=== PATIENT | female | born 1945 | race Caucasian/White ===

== ENCOUNTER 2018-09-02 07:21 | Day surgery (SDC) | payer MEDICARE, BC ==
[2018-08-29 14:32] VITALS: BMI 44.9
[~2018-09-02 07:21] MED LIST: LACTATED RINGERS 1,000 ML IV SCH; LIDOCAINE 1% 20 ML VIAL (10MG/ML) FOR IV START INTRADERMA PRN
[2018-09-02 07:51] LABS: Glucose,Whole Blood 130 mg/dL (75-99)
[2018-09-02 07:56] VITALS: TEMP 98
[2018-09-02] MEDS ORDERED: LIDOCAINE 1% 20 ML VIAL (10MG/ML) FOR IV START INTRADERMA ONE (07:57)
[2018-09-02] MEDS ORDERED: PROPOFOL 10 MG/ML 20 ML VIAL IV ONE (08:41)
[2018-09-02] MEDS ORDERED: LIDOCAINE 1% INJ 10MG/ML (20 ML MDV) ONE (08:41)
--- NOTE | 2018-09-02 08:47 | P.GSHP ---
History of Present Illness H&P Date: 09/02/18 Chief Complaint: GI bleed This a 73-year-old female who's had complaints of anemia. Patient's had some minor GI bleed in the past. She does today for EGD colonoscopy. Past Medical History Past Medical History: CVA/TIA, Diabetes Mellitus, Hyperlipidemia, Hypertension, Osteoarthritis (OA), Skin Disorder Additional Past Medical History / Comment(s): STATES IS ANEMIC, HX BRAIN ANEURYSM, PSORIASIS, GOUT History of Any Multi-Drug Resistant Organisms: MRSA Date of last positivie culture/infection: SUMMER 2013 MDRO Source:: CHEST,BREAST,STOMACH Past Surgical History: Appendectomy, Hysterectomy, Orthopedic Surgery Additional Past Surgical History / Comment(s): BRAIN ANEURYSM CLIPPED,RT SHOULDER SURGERY, GANGLION CYST REMOVED RT HAND,CYST AND NODULE REMOVED RT BREAST, Past Anesthesia/Blood Transfusion Reactions: Previous Problems w/ Anesthesia, Motion Sickness Additional Past Anesthesia/Blood Transfusion Reaction / Comment(s): STATES FELT "SEVERE PAIN" WITH PREVIOUS COLONOSCOPY, WITH PREV. GENERAL ANESTHESIA STATES SHE HAD HALLUCINATIONS Smoking Status: Former smoker - Past Family History Mother Additional Family Medical History / Comment(s): PRECANCEROUS BREAST CELLS- MASTECTOMY Father Family Medical History: Myocardial Infarction ([place]) Medications and Allergies Home Medications Medication Instructions Recorded Confirmed Type Allopurinol 200 mg PO DAILY 01/13/15 09/02/18 History Insulin Glargine [Lantus] 18 units SQ HS 01/13/15 09/02/18 History Levothyroxine Sodium [Synthroid] 25 mcg PO DAILY@1800 01/13/15 09/02/18 History Lisinopril 10 mg PO DAILY@1800 01/13/15 09/02/18 History Atorvastatin [Lipitor] 40 mg PO DAILY 01/25/15 09/02/18 History Pioglitazone [Actos] 15 mg PO QAM 08/29/18 09/02/18 History metFORMIN HCL [Glucophage] 1,000 mg PO AC-SUPPER 08/29/18 09/02/18 History metFORMIN HCL [Glucophage] 500 mg PO QAM 08/29/18 09/02/18 History Allergies Allergy/AdvReac Type Severity Reaction Status Date / Time No Known Allergies Allergy Verified 09/02/18 07:32 Surgical - Exam Vital Signs Temp Pulse Resp BP Pulse Ox 98 F 101 H 16 163/99 99 09/02/18 07:52 09/02/18 07:52 09/02/18 07:52 09/02/18 07:52 09/02/18 07:52 - General well developed, well nourished, no distress - Eyes PERRL - ENT normal pinna - Neck no masses - Respiratory normal expansion - Cardiovascular Rhythm: regular - Abdomen Abdomen: soft, non tender Results - Labs Abnormal Lab Results - Last 24 Hours (Table) 09/02/18 Range/Units 07:50 POC Glucose (mg/dL) 130 H (75-99) mg/dL Assessment and Plan Assessment: GI bleed Anemia We'll perform EGD and colonoscopy.
--- NOTE | 2018-09-02 09:11 | P.OP ---
Date of Procedure: 09/02/18 Preoperative Diagnosis: GI bleed Postoperative Diagnosis: Antral gastritis Right colon polyp Diverticulosis Procedure(s) Performed: EGD Colonoscopy Anesthesia: MAC Surgeon: Eric Arnold Pathology: other (Antrum, right colon polyp) Condition: stable Disposition: PACU Description of Procedure: The patient's placed on the endoscopy table in the lateral position. She received IV sedation. The gastroscope placed oropharynx and passed in the esophagus and into the stomach. Scope was then placed through the pylorus. The first and second portion of the duodenum appeared normal. The scope was then brought back the antrum and this was mildly inflamed. A biopsies performed. Scope was retroflexed and remainder of the stomach appeared normal. There was a small hiatal hernia. The GE junction was at 38 cm. The distal esophagus appeared normal. The proximal esophagus. Normal. Scope was withdrawn for patient. There was no evidence of any active upper GI bleed. Next digital rectal exam was performed which revealed a few minimal external hemorrhoids. The flexible colonoscope was then placed patient anus passed throughout the entire colon. The ileocecal valve was visualized. The cecum was visualized. Just above the cecum there was a pedunculated polyp was removed with snare. There is some mild diverticular changes of the right colon. Scope was then brought back the remainder the ascending colon and transverse colon was examined. There were scattered diverticuli seen. In the descending and sigmoid colon there were a few scattered diverticula. There is no evidence of any polyps or tumors. Scope was back the rectum and this appeared normal. Scope was withdrawn for patient. There is known to any active GI bleed. His presumed the patient had some minor bleeding due to diverticular changes in the colon polyp.
[2018-09-02 09:39] VITALS: RESP 18
[2018-09-02 09:53] VITALS: BP 140/50; PULSE 90
== END 2018-09-02 09:53 | disposition home or self-care (01) ==
LOC: ORWHC2ENDO 07:21
PROVIDERS: ATTEND Surgery
DX: K29.50 Unspecified chronic gastritis without bleeding (principal); D12.2 Benign neoplasm of ascending colon; K57.30 Diverticulosis of large intestine without perforation or abscess without bleeding; B96.81 Helicobacter pylori [H. pylori] as the cause of diseases classified elsewhere; D64.9 Anemia, unspecified; K44.9 Diaphragmatic hernia without obstruction or gangrene; E11.9 Type 2 diabetes mellitus without complications; E78.5 Hyperlipidemia, unspecified; E07.9 Disorder of thyroid, unspecified; I10 Essential (primary) hypertension; K64.4 Residual hemorrhoidal skin tags; L40.9 Psoriasis, unspecified; M10.9 Gout, unspecified; M19.90 Unspecified osteoarthritis, unspecified site; Z79.4 Long term (current) use of insulin; Z86.73 Personal history of transient ischemic attack (TIA), and cerebral infarction without residual deficits; Z87.891 Personal history of nicotine dependence; Z79.890 Hormone replacement therapy; Z79.82 Long term (current) use of aspirin; Z86.14 Personal history of Methicillin resistant Staphylococcus aureus infection
CPT/HCPCS: 88305; 88342; 45385; 43239; J2001; J2704

== ENCOUNTER 2018-09-20 11:37 | Inpatient (IN) | payer MEDICARE, BC ==
[2018-09-20 13:24] LABS: Anisocytosis Slight; Basophils % (A) 0 %; Eosinophils # (A) 0.1 k/uL (0-0.7); Eosinophils % (A) 1 %; HCT 21.5 % (34.0-46.0); Hypochromasia Marked; Lymphocytes # (A) 1.7 k/uL (1.0-4.8); Lymphocytes % (A) 22 %; MCH 19.5 pg (25.0-35.0); MCHC 28.5 g/dL (31.0-37.0); MCV 68.2 fL (80.0-100.0); Mean Platelet Volume 6.7; Microcytosis Marked; Monocytes # (A) 0.3 k/uL (0-1.0); Monocytes % (A) 4 %; Neutrophils # (A) 5.5 k/uL (1.3-7.7); Neutrophils % (A) 71 %; Platelet Count 345 k/uL (150-450); Poikilocytosis Moderate; RBC 3.16 m/uL (3.80-5.40); WBC 7.7 k/uL (3.8-10.6)
[2018-09-20 13:33] LABS: Albumin 3.8 g/dL (3.5-5.0); Calcium 9.2 mg/dL (8.4-10.2); Magnesium 1.2 mg/dL (1.6-2.3); Potassium 4.9 mmol/L (3.5-5.1); Total Bilirubin 0.4 mg/dL (0.2-1.3); Total Protein 6.6 g/dL (6.3-8.2)
[2018-09-20 13:34] LABS: HGB 6.1 gm/dL (11.4-16.0)
[2018-09-20 13:43] LABS: Creatine Kinase 61 U/L (30-135)
[2018-09-20 13:45] LABS: INR 0.9 (<1.2); Partial Thromboplastin Time 22.4 sec (22.0-30.0); Prothrombin Time 9.8 sec (9.0-12.0)
[2018-09-20 13:56] LABS: Creatine Kinase MB 0.5 ng/mL (0.0-2.4); Troponin I <0.012 ng/mL (0.000-0.034)
--- NOTE | 2018-09-20 14:11 | ED ---
SOB HPI - General Chief Complaint: Shortness of Breath Stated Complaint: SORAIDA Time Seen by Provider: 09/20/18 11:57 Source: patient, family, RN notes reviewed Mode of arrival: wheelchair Limitations: no limitations - History of Present Illness Initial Comments: This is a 73-year-old female who presents with complaints of exertional dyspnea is been going on for some time now she has been evaluated for bleeding and pelvis on have some type of upper GI bleed she was seen by Dr. De Diosania she barely had endoscopy. She was seen by her doctor yesterday found have a hemoglobin 6.3 was sent in for evaluation and blood transfusion. She is still extremely exertional dyspnea. No chest pain no cough or phlegm production. She is a former smoker but quit 1984. No black stools reported no nausea vomiting MD Complaint: shortness of breath - Related Data Home Medications Medication Instructions Recorded Confirmed Allopurinol 200 mg PO DAILY 01/13/15 09/02/18 Insulin Glargine [Lantus] 18 units SQ HS 01/13/15 09/02/18 Levothyroxine Sodium [Synthroid] 25 mcg PO DAILY@1800 01/13/15 09/02/18 Lisinopril 10 mg PO DAILY@1800 01/13/15 09/02/18 Atorvastatin [Lipitor] 40 mg PO DAILY 01/25/15 09/02/18 Pioglitazone [Actos] 15 mg PO QAM 08/29/18 09/02/18 metFORMIN HCL [Glucophage] 1,000 mg PO AC-SUPPER 08/29/18 09/02/18 metFORMIN HCL [Glucophage] 500 mg PO QAM 08/29/18 09/02/18 Allergies Allergy/AdvReac Type Severity Reaction Status Date / Time No Known Allergies Allergy Verified 09/02/18 07:32 Review of Systems ROS Statement: Those systems with pertinent positive or pertinent negative responses have been documented in the HPI. ROS Other: All systems not noted in ROS Statement are negative. Past Medical History Past Medical History: CVA/TIA, Diabetes Mellitus, Hyperlipidemia, Hypertension, Osteoarthritis (OA), Skin Disorder Additional Past Medical History / Comment(s): STATES IS ANEMIC, HX BRAIN ANEURYSM, PSORIASIS, GOUT History of Any Multi-Drug Resistant Organisms: None Reported, MRSA Date of last positivie culture/infection: SUMMER 2013 MDRO Source:: CHEST,BREAST,STOMACH Past Surgical History: Appendectomy, Hysterectomy, Orthopedic Surgery Additional Past Surgical History / Comment(s): BRAIN ANEURYSM CLIPPED,RT SHOULDER SURGERY, GANGLION CYST REMOVED RT HAND,CYST AND NODULE REMOVED RT BREAST, Past Anesthesia/Blood Transfusion Reactions: Previous Problems w/ Anesthesia, Motion Sickness Additional Past Anesthesia/Blood Transfusion Reaction / Comment(s): STATES FELT "SEVERE PAIN" WITH PREVIOUS COLONOSCOPY, WITH PREV. GENERAL ANESTHESIA STATES SHE HAD HALLUCINATIONS Past Psychological History: No Psychological Hx Reported Smoking Status: Former smoker Past Alcohol Use History: Rare Past Drug Use History: None Reported - Past Family History Mother Additional Family Medical History / Comment(s): PRECANCEROUS BREAST CELLS- MASTECTOMY Father Family Medical History: Myocardial Infarction ([place]) General Exam - General Exam Comments Initial Comments: Well-developed obese female who is awake alert oriented 3 Limitations: no limitations General appearance: alert, in no apparent distress Head exam: Present: atraumatic, normocephalic, normal inspection Eye exam: Present: normal appearance, PERRL, EOMI. Absent: scleral icterus, conjunctival injection, periorbital swelling ENT exam: Present: normal exam, mucous membranes moist Neck exam: Present: normal inspection. Absent: tenderness, meningismus, lymphadenopathy Respiratory exam: Present: normal lung sounds bilaterally. Absent: respiratory distress, wheezes, rales, rhonchi, stridor Cardiovascular Exam: Present: regular rate, normal rhythm, normal heart sounds. Absent: systolic murmur, diastolic murmur, rubs, gallop, clicks GI/Abdominal exam: Present: soft, normal bowel sounds. Absent: distended, tenderness, guarding, rebound, rigid, bruit, pulsatile mass Rectal exam: Present: normal inspection, other (Brown yellow stool no gross blood. The exam was done with a female nurse present) Extremities exam: Present: normal inspection, full ROM, normal capillary refill. Absent: tenderness, pedal edema, joint swelling, calf tenderness Back exam: Present: normal inspection Neurological exam: Present: alert, oriented X3, CN II-XII intact Psychiatric exam: Present: normal affect, normal mood Skin exam: Present: warm, dry, intact, normal color. Absent: rash Course Vital Signs 09/20/18 11:43 Temperature 98.1 F Pulse Rate 105 H Respiratory 18 Rate Blood Pressure 128/76 O2 Sat by Pulse 99 Oximetry - Reevaluation(s) Reevaluation #1: 02/16/19 14:50 Of note I did reevaluate the patient she had no further symptoms while at rest. Medical Decision Making - Medical Decision Making Patient remains asymptomatic at rest she does walk she is short of breath. I did discuss the findings with her and her . Patient will be admitted for transfusion and evaluation by Dr. Arnold. The Hemoccult test is pending at this time but there is no evidence of any gross bleeding. I did discuss case with Dr. Cartwright - Lab Data Result diagrams: 09/20/18 13:08 09/20/18 13:08 Lab Results 09/20/18 09/20/18 09/20/18 Range/Units 13:08 13:08 13:08 WBC 7.7 (3.8-10.6) k/uL RBC 3.16 L (3.80-5.40) m/uL Hgb 6.1 L* (11.4-16.0) gm/dL Hct 21.5 L (34.0-46.0) % MCV 68.2 L (80.0-100.0) fL MCH 19.5 L (25.0-35.0) pg MCHC 28.5 L (31.0-37.0) g/dL RDW 17.0 H (11.5-15.5) % Plt Count 345 (150-450) k/uL Neutrophils % 71 % Lymphocytes % 22 % Monocytes % 4 % Eosinophils % 1 % Basophils % 0 % Neutrophils # 5.5 (1.3-7.7) k/uL Lymphocytes # 1.7 (1.0-4.8) k/uL Monocytes # 0.3 (0-1.0) k/uL Eosinophils # 0.1 (0-0.7) k/uL Basophils # 0.0 (0-0.2) k/uL Hypochromasia Marked Poikilocytosis Moderate Anisocytosis Slight Microcytosis Marked PT (9.0-12.0) sec INR (<1.2) APTT (22.0-30.0) sec Sodium (137-145) mmol/L Potassium (3.5-5.1) mmol/L Chloride (98-107) mmol/L Carbon Dioxide (22-30) mmol/L Anion Gap mmol/L BUN (7-17) mg/dL Creatinine (0.52-1.04) mg/dL Est GFR (CKD-EPI)AfAm (>60 ml/min/1.73 sqM) Est GFR (CKD-EPI)NonAf (>60 ml/min/1.73 sqM) Glucose (74-99) mg/dL Calcium (8.4-10.2) mg/dL Magnesium (1.6-2.3) mg/dL Total Bilirubin (0.2-1.3) mg/dL AST (14-36) U/L ALT (9-52) U/L Alkaline Phosphatase (38-126) U/L Total Creatine Kinase 61 (30-135) U/L CK-MB (CK-2) 0.5 (0.0-2.4) ng/mL CK-MB (CK-2) Rel Index 0.8 Troponin I <0.012 (0.000-0.034) ng/mL NT-Pro-B Natriuret Pep pg/mL Total Protein (6.3-8.2) g/dL Albumin (3.5-5.0) g/dL Blood Type B Positive Blood Type Recheck CABO Indicated Antibody Screen NEGATIVE Spec Expiration Date 09/23/2018 - 230709/20/18 09/20/18 09/20/18 Range/Units 13:08 13:08 13:08 WBC (3.8-10.6) k/uL RBC (3.80-5.40) m/uL Hgb (11.4-16.0) gm/dL Hct (34.0-46.0) % MCV (80.0-100.0) fL MCH (25.0-35.0) pg MCHC (31.0-37.0) g/dL RDW (11.5-15.5) % Plt Count (150-450) k/uL Neutrophils % % Lymphocytes % % Monocytes % % Eosinophils % % Basophils % % Neutrophils # (1.3-7.7) k/uL Lymphocytes # (1.0-4.8) k/uL Monocytes # (0-1.0) k/uL Eosinophils # (0-0.7) k/uL Basophils # (0-0.2) k/uL Hypochromasia Poikilocytosis Anisocytosis Microcytosis PT 9.8 (9.0-12.0) sec INR 0.9 (<1.2) APTT 22.4 (22.0-30.0) sec Sodium 142 (137-145) mmol/L Potassium 4.9 (3.5-5.1) mmol/L Chloride 112 H (98-107) mmol/L Carbon Dioxide 17 L (22-30) mmol/L Anion Gap 13 mmol/L BUN 30 H (7-17) mg/dL Creatinine 1.56 H (0.52-1.04) mg/dL Est GFR (CKD-EPI)AfAm 37 (>60 ml/min/1.73 sqM) Est GFR (CKD-EPI)NonAf 32 (>60 ml/min/1.73 sqM) Glucose 98 (74-99) mg/dL Calcium 9.2 (8.4-10.2) mg/dL Magnesium 1.2 L (1.6-2.3) mg/dL Total Bilirubin 0.4 (0.2-1.3) mg/dL AST 29 (14-36) U/L ALT 28 (9-52) U/L Alkaline Phosphatase 80 (38-126) U/L Total Creatine Kinase (30-135) U/L CK-MB (CK-2) (0.0-2.4) ng/mL CK-MB (CK-2) Rel Index Troponin I (0.000-0.034) ng/mL NT-Pro-B Natriuret Pep 540 pg/mL Total Protein 6.6 (6.3-8.2) g/dL Albumin 3.8 (3.5-5.0) g/dL Blood Type Blood Type Recheck Antibody Screen Spec Expiration Date - EKG Data -: EKG Interpreted by Oh EKG shows normal: sinus rhythm (Sinus tachycardia rate 101 NH interval 126 QRS 76 QT since QTC 366/474 no definite acute findings) Critical Care Time Critical Care Time: Yes Critical Care Time: 31 minutes of critical care time which includes initial presentation with history physical labs x-rays several reevaluation patient as well as review of old charting was available. Discussion with the family regarding findings discussed with the admitting physician. Admission orders documentation of the above Disposition Clinical Impression: Symptomatic anemia, Renal insufficiency syndrome, Hypomagnesemia Disposition: ADMITTED IP TO THIS HOSP Condition: Stable Referrals: Shannon Middleton DO [Primary Care Provider] - 1-2 days
[2018-09-20] MEDS ORDERED: MAGNESIUM SULFATE-D5W PMX 1 GM in DEXTROSE/WATER 1 100ML.BAG IVPB ONE (14:17)
[2018-09-20] MEDS ORDERED: NALOXONE 0.4 MG/ML 1 ML VIAL IV PRN (14:51)
[2018-09-20] MEDS ORDERED: ONDANSETRON 4 MG/2 ML VIAL IVP PRN (14:51)
--- NOTE | 2018-09-20 15:27 | XR ---
EXAMINATION TYPE: XR chest 2V DATE OF EXAM: 09/20/2018 COMPARISON: NONE HISTORY: Difficulty breathing TECHNIQUE: Frontal and lateral views of the chest are obtained. FINDINGS: There is no heart failure nor confluent pneumonic infiltrate. Costophrenic angles are charli r. There is left shoulder prosthesis. Heart size is normal. There are chest leads. IMPRESSION: Normal chest.
[2018-09-20] MEDS ORDERED: FUROSEMIDE 10 MG/ML 2 ML VIAL IV ONE (15:56)
[2018-09-20] MEDS: SODIUM CHLORIDE 0.9% 1,000 ML IV SCH (16:31)
[2018-09-20 16:55] LABS: Glucose,Whole Blood 147 mg/dL (75-99)
[2018-09-20] MEDS: LISINOPRIL 10 MG TAB PO SCH (17:51)
[2018-09-20] MEDS: LEVOTHYROXINE 25 MCG TAB PO SCH (17:51)
[2018-09-20] MEDS: metFORMIN 500 MG TAB PO SCH (17:51)
[2018-09-20 20:31] LABS: Glucose,Whole Blood 88 mg/dL (75-99)
[2018-09-20] MEDS: ASPIRIN-ACET-CAFF 250-250-65MG 1 EACH TAB PO SCH (20:52)
[2018-09-20] MEDS: PANTOPRAZOLE 40 MG/10 ML VIAL IV SCH (20:53)
[2018-09-20] MEDS: INSULIN DETEMIR (LEVEMIR) 100 UNIT/ML SYR SQ SCH (21:08)
[2018-09-20 23:55] LABS: Hemoglobin A1C 6.8 % (4.0-6.0)
[2018-09-21 02:34] LABS: Glucose,Whole Blood 92 mg/dL (75-99)
[2018-09-21 07:10] LABS: Glucose,Whole Blood 105 mg/dL (75-99)
[2018-09-21 09:23] LABS: Anisocytosis Slight; Basophils % (A) 1 %; Eosinophils # (A) 0.2 k/uL (0-0.7); Eosinophils % (A) 2 %; HCT 26.8 % (34.0-46.0); Hypochromasia Marked; Lymphocytes # (A) 1.4 k/uL (1.0-4.8); Lymphocytes % (A) 20 %; MCH 21.8 pg (25.0-35.0); MCHC 30.5 g/dL (31.0-37.0); MCV 71.5 fL (80.0-100.0); Mean Platelet Volume 6.2; Microcytosis Marked; Monocytes # (A) 0.3 k/uL (0-1.0); Monocytes % (A) 4 %; Neutrophils # (A) 5.1 k/uL (1.3-7.7); Neutrophils % (A) 71 %; Platelet Count 313 k/uL (150-450); Poikilocytosis Marked; RBC 3.75 m/uL (3.80-5.40); RDW 18.4 % (11.5-15.5); WBC 7.1 k/uL (3.8-10.6)
[2018-09-21 09:35] LABS: HGB 8.2 gm/dL (11.4-16.0)
[2018-09-21 09:46] LABS: Albumin 3.4 g/dL (3.5-5.0); Calcium 8.9 mg/dL (8.4-10.2); Potassium 4.1 mmol/L (3.5-5.1); Total Bilirubin 0.5 mg/dL (0.2-1.3); Total Protein 6.1 g/dL (6.3-8.2)
[2018-09-21] MEDS: metFORMIN 500 MG TAB PO SCH ×2 (09:50→17:41)
[2018-09-21] MEDS: PIOGLITAZONE 15 MG TAB PO SCH (09:50)
[2018-09-21] MEDS: PANTOPRAZOLE 40 MG/10 ML VIAL IV SCH ×2 (09:50→20:25)
[2018-09-21] MEDS: ALLOPURINOL 100 MG TAB PO SCH (09:50)
[2018-09-21] MEDS: SODIUM CHLORIDE 0.9% 1,000 ML IV SCH (09:50)
[2018-09-21] MEDS: ATORVASTATIN 40 MG TAB PO SCH (09:50)
[2018-09-21] MEDS ORDERED: Magnesium Replacement Protocol 1 EACH MISC MISCELLANE PRN (10:43)
--- NOTE | 2018-09-21 11:13 | P.HPIM ---
History of Present Illness H&P Date: 09/21/18 Chief Complaint: Shortness of breath Yan Dumont is a 73-year-old female patient of Dr. Shannon Middleton, who presented to [facility] emergency room with a chief complaint of worsening shortness of breath. Hemoglobin on presentation was 6.1. Patient has been following with her primary care physician and with Dr. Arnold for evaluation of anemia she had an EGD and colonoscopy on 09/02/2018 that revealed evidence of acute gastritis, right colon polyp, and diverticulosis. Patient was also diagnosed with positive H. pylori and was started on oral amoxicillin and oral Biaxin however she continued to have worsening anemia and on the day of admission she started having worsening shortness of breath and she decided to come to emergency room. On review of systems: there is no fever or chills no headache or dizziness no chest pain no palpitation no cough no nausea or vomiting no abdominal pain no diarrhea no burning with urination no frequency no urgency and no hematuria patient stated that her stool has been kash color Past Medical History Past Medical History: CVA/TIA, Diabetes Mellitus, Hyperlipidemia, Hypertension, Osteoarthritis (OA), Skin Disorder Additional Past Medical History / Comment(s): STATES IS ANEMIC, HX BRAIN ANEURYSM, PSORIASIS, GOUT History of Any Multi-Drug Resistant Organisms: None Reported, MRSA Date of last positivie culture/infection: SUMMER 2013 MDRO Source:: CHEST,BREAST,STOMACH Past Surgical History: Appendectomy, Hysterectomy, Orthopedic Surgery Additional Past Surgical History / Comment(s): BRAIN ANEURYSM CLIPPED,RT SHOULDER SURGERY, GANGLION CYST REMOVED RT HAND,CYST AND NODULE REMOVED RT BREAST, Past Anesthesia/Blood Transfusion Reactions: Previous Problems w/ Anesthesia, Motion Sickness Additional Past Anesthesia/Blood Transfusion Reaction / Comment(s): STATES FELT "SEVERE PAIN" WITH PREVIOUS COLONOSCOPY, WITH PREV. GENERAL ANESTHESIA STATES SHE HAD HALLUCINATIONS Past Psychological History: No Psychological Hx Reported Smoking Status: Former smoker Past Alcohol Use History: Rare Additional Past Alcohol Use History / Comment(s): QUIT SMOKING SMOKED APPROX 10 YRS Past Drug Use History: None Reported - Past Family History Mother Additional Family Medical History / Comment(s): PRECANCEROUS BREAST CELLS- MASTECTOMY Father Family Medical History: Myocardial Infarction ([place]) Medications and Allergies Home Medications Medication Instructions Recorded Confirmed Type Allopurinol 200 mg PO DAILY 01/13/15 09/20/18 History Insulin Glargine [Lantus] 18 units SQ HS 01/13/15 09/20/18 History Levothyroxine Sodium [Synthroid] 25 mcg PO DAILY@1800 01/13/15 09/20/18 History Lisinopril 10 mg PO DAILY@1800 01/13/15 09/20/18 History Atorvastatin [Lipitor] 40 mg PO DAILY 01/25/15 09/20/18 History Pioglitazone [Actos] 15 mg PO QAM 08/29/18 09/20/18 History metFORMIN HCL [Glucophage] 1,000 mg PO AC-SUPPER 08/29/18 09/20/18 History metFORMIN HCL [Glucophage] 500 mg PO QAM 08/29/18 09/20/18 History Amoxicillin 1,000 mg PO BID 09/20/18 09/20/18 History Aspirin EC [Ecotrin Low Dose] 81 mg PO DAILY 09/20/18 09/20/18 History Clarithromycin [Biaxin] 500 mg PO Q12HR 09/20/18 09/20/18 History Omeprazole 20 mg PO BID 09/20/18 09/20/18 History Allergies Allergy/AdvReac Type Severity Reaction Status Date / Time No Known Allergies Allergy Verified 09/20/18 15:08 Physical Exam Vitals: Vital Signs Temp Pulse Pulse Resp BP BP Pulse Ox 09/21/18 09:54 78 16 09/21/18 06:50 78 16 167/74 100 09/21/18 06:27 99.2 F 102 H 18 181/72 94 L 09/21/18 02:27 98 F 82 18 148/75 96 09/20/18 22:47 18 09/20/18 22:11 97.8 F 88 17 132/70 97 09/20/18 21:41 98 F 86 14 153/78 97 09/20/18 21:31 98.7 F 88 15 107/73 98 09/20/18 20:43 98 F 96 15 140/71 100 09/20/18 17:55 98 F 92 14 142/72 100 09/20/18 17:25 97.8 F 102 H 14 124/76 09/20/18 17:15 97.9 F 104 H 14 129/52 100 09/20/18 16:16 98.0 F 108 H 12 176/81 98 09/20/18 16:03 98.1 F 82 18 158/69 100 09/20/18 15:54 82 18 158/69 09/20/18 15:07 90 18 137/44 100 09/20/18 11:43 98.1 F 105 H 18 128/76 99 Intake and Output 09/20/18 09/21/18 09/21/18 22:59 06:59 14:59 Intake Total 960 310 400 Balance 960 310 400 Intake: Amount of Fluid Infused ( 250 ml) Oral 400 400 Blood Product 310 310 Rc As-1 Unit 0 310 [id number] Rc As-3 Unit 310 [id number] Other: Voiding Method Toilet Toilet # Voids 3 3 Head normocephalic. Neck supple no JVD no goiter Lungs clear to auscultation bilaterally no wheezing or crackles Heart regular rate and rhythm S1-S2, no rub or gallop Abdomen is soft nontender nondistended positive bowel sounds no hepatosplenomegaly Extremities no edema no cyanosis or clubbing Neuro alert and orientated X 3, no gross focal deficit Results CBC & Chem 7: 09/21/18 09:02 09/21/18 09:02 Labs: Abnormal Lab Results - Last 24 Hours (Table) 09/20/18 09/20/18 09/20/18 Range/Units 13:08 13:08 13:08 RBC 3.16 L (3.80-5.40) m/uL Hgb 6.1 L* (11.4-16.0) gm/dL Hct 21.5 L (34.0-46.0) % MCV 68.2 L (80.0-100.0) fL MCH 19.5 L (25.0-35.0) pg MCHC 28.5 L (31.0-37.0) g/dL RDW 17.0 H (11.5-15.5) % Chloride 112 H (98-107) mmol/L Carbon Dioxide 17 L (22-30) mmol/L BUN 30 H (7-17) mg/dL Creatinine 1.56 H (0.52-1.04) mg/dL Glucose (74-99) mg/dL POC Glucose (mg/dL) (75-99) mg/dL Hemoglobin A1c (4.0-6.0) % Magnesium 1.2 L (1.6-2.3) mg/dL Total Protein (6.3-8.2) g/dL Albumin (3.5-5.0) g/dL Stool Occult Blood (Negative) Crossmatch See Detail 09/20/18 09/20/18 09/20/18 Range/Units 13:08 14:02 16:53 RBC (3.80-5.40) m/uL Hgb (11.4-16.0) gm/dL Hct (34.0-46.0) % MCV (80.0-100.0) fL MCH (25.0-35.0) pg MCHC (31.0-37.0) g/dL RDW (11.5-15.5) % Chloride (98-107) mmol/L Carbon Dioxide (22-30) mmol/L BUN (7-17) mg/dL Creatinine (0.52-1.04) mg/dL Glucose (74-99) mg/dL POC Glucose (mg/dL) 147 H (75-99) mg/dL Hemoglobin A1c 6.8 H (4.0-6.0) % Magnesium (1.6-2.3) mg/dL Total Protein (6.3-8.2) g/dL Albumin (3.5-5.0) g/dL Stool Occult Blood Positive H (Negative) Crossmatch 09/21/18 09/21/18 09/21/18 Range/Units 06:50 09:02 09:02 RBC 3.75 L (3.80-5.40) m/uL Hgb 8.2 L D (11.4-16.0) gm/dL Hct 26.8 L (34.0-46.0) % MCV 71.5 L (80.0-100.0) fL MCH 21.8 L (25.0-35.0) pg MCHC 30.5 L (31.0-37.0) g/dL RDW 18.4 H (11.5-15.5) % Chloride 109 H (98-107) mmol/L Carbon Dioxide (22-30) mmol/L BUN 21 H (7-17) mg/dL Creatinine 1.23 H (0.52-1.04) mg/dL Glucose 147 H (74-99) mg/dL POC Glucose (mg/dL) 105 H (75-99) mg/dL Hemoglobin A1c (4.0-6.0) % Magnesium (1.6-2.3) mg/dL Total Protein 6.1 L (6.3-8.2) g/dL Albumin 3.4 L (3.5-5.0) g/dL Stool Occult Blood (Negative) Crossmatch Thrombosis Risk Factor Assmnt - Choose All That Apply Any of the Below Risk Factors Present?: No Each Risk Factor Represents 3 Points: Age 75 years or older Thrombosis Risk Factor Assessment Total Risk Factor Score: 3 Thrombosis Risk Factor Assessment Level: Moderate Risk Assessment and Plan Plan: #1 Shortness of breath, likely related to anemia, chest x-ray on presentation reveals normal chest #2 Anemia, hemoglobin on presentation 6.1, patient received 2 units of red blood cell transfusion last night hemoglobin today 8.2. Patient underwent EGD and colonoscopy by Dr. Arnold which revealed evidence of right colon polyp, diverticulosis, antral gastritis, and positive H. pylori per patient, she was started on a course of Biaxin and amoxicillin. #3 acute kidney injury on presentation likely related to dehydration and prerenal azotemia BUN up to 30 creatinine up to 1.56 on admission . creatinine down to 1.23 today after blood transfusion #4 Insulin requiring diabetes mellitus, insulin is on hold at this time patient is nothing by mouth she is being covered with sliding scale #5 Underlying history of hypertension, blood pressure was elevated on presentation Will monitor closely and adjust blood pressure medications if needed #6 Underlying history of hypothyroiism #7 Underlying history of hyperlipidemia At this time will check CBC in a.m. to assess if there is any further hemoglobin drop Will check CMP to assess kidney function in the morning Consultation for Dr. Arnold was requested to assess if there is any further intervention necessary Will resume amoxicillin and Biaxin for treatment of H. pylori DVT prophylaxis SCD stockings GI prophylaxis, patient on Protonix
[2018-09-21] MEDS ORDERED: SODIUM CHLORIDE 0.9% 1,000 ML IV STA (11:16)
[2018-09-21 11:39] LABS: Glucose,Whole Blood 130 mg/dL (75-99)
[2018-09-21] MEDS: AMOXICILLIN 500 MG CAP PO SCH ×2 (11:45→20:25)
[2018-09-21] MEDS: CLARITHROMYCIN 500 MG TAB PO SCH ×2 (11:45→20:25)
[2018-09-21 16:38] LABS: Glucose,Whole Blood 115 mg/dL (75-99)
[2018-09-21] MEDS: LISINOPRIL 10 MG TAB PO SCH (17:41)
[2018-09-21] MEDS: LEVOTHYROXINE 25 MCG TAB PO SCH (17:41)
[2018-09-21] MEDS: ASPIRIN-ACET-CAFF 250-250-65MG 1 EACH TAB PO SCH (18:56)
[2018-09-21 19:54] LABS: Glucose,Whole Blood 114 mg/dL (75-99)
[2018-09-21] MEDS: INSULIN DETEMIR (LEVEMIR) 100 UNIT/ML SYR SQ SCH (20:26)
[2018-09-22 07:53] LABS: Glucose,Whole Blood 155 mg/dL (75-99)
--- NOTE | 2018-09-22 07:55 | P.GSCN ---
History of Present Illness Consult date: 09/21/18 History of present illness: Patient presents with Hgb drop of 2 grams with 2 units pRBCs transfusion. No nausea. She is on clears. Last upper and lower scope 09/02/[address] Arnold. May benefit from repeat scope. Past Medical History Past Medical History: CVA/TIA, Diabetes Mellitus, Hyperlipidemia, Hypertension, Osteoarthritis (OA), Skin Disorder Additional Past Medical History / Comment(s): STATES IS ANEMIC, HX BRAIN ANEURYSM, PSORIASIS, GOUT History of Any Multi-Drug Resistant Organisms: None Reported, MRSA Year Discovered:: SUMMER 2013 MDRO Source:: CHEST,BREAST,STOMACH Past Surgical History: Appendectomy, Hysterectomy, Orthopedic Surgery Additional Past Surgical History / Comment(s): BRAIN ANEURYSM CLIPPED,RT SHOULDER SURGERY, GANGLION CYST REMOVED RT HAND,CYST AND NODULE REMOVED RT BREAST, Past Anesthesia/Blood Transfusion Reactions: Previous Problems w/ Anesthesia, Motion Sickness Additional Past Anesthesia/Blood Transfusion Reaction / Comm: STATES FELT "SEVERE PAIN" WITH PREVIOUS COLONOSCOPY, WITH PREV. GENERAL ANESTHESIA STATES SHE HAD HALLUCINATIONS Past Psychological History: No Psychological Hx Reported Smoking Status: Former smoker Past Alcohol Use History: Rare Additional Past Alcohol Use History / Comment(s): QUIT SMOKING SMOKED APPROX 10 YRS Past Drug Use History: None Reported - Past Family History Mother Additional Family Medical History / Comment(s): PRECANCEROUS BREAST CELLS- MASTECTOMY Father Family Medical History: Myocardial Infarction (DE) Medications and Allergies Home Medications Medication Instructions Recorded Confirmed Type Allopurinol 200 mg PO DAILY 01/13/15 09/20/18 History Insulin Glargine [Lantus] 18 units SQ HS 01/13/15 09/20/18 History Levothyroxine Sodium [Synthroid] 25 mcg PO DAILY@1800 01/13/15 09/20/18 History Lisinopril 10 mg PO DAILY@1800 01/13/15 09/20/18 History Atorvastatin [Lipitor] 40 mg PO DAILY 01/25/15 09/20/18 History Pioglitazone [Actos] 15 mg PO QAM 08/29/18 09/20/18 History metFORMIN HCL [Glucophage] 1,000 mg PO AC-SUPPER 08/29/18 09/20/18 History metFORMIN HCL [Glucophage] 500 mg PO QAM 08/29/18 09/20/18 History Amoxicillin 1,000 mg PO BID 09/20/18 09/20/18 History Aspirin EC [Ecotrin Low Dose] 81 mg PO DAILY 09/20/18 09/20/18 History Clarithromycin [Biaxin] 500 mg PO Q12HR 09/20/18 09/20/18 History Omeprazole 20 mg PO BID 09/20/18 09/20/18 History Allergies Allergy/AdvReac Type Severity Reaction Status Date / Time No Known Allergies Allergy Verified 09/20/18 15:08 Surgical - Exam Vital Signs Temp Pulse Resp BP Pulse Ox 98.1 F 105 H 18 128/76 99 09/20/18 11:43 09/20/18 11:43 09/20/18 11:43 09/20/18 11:43 09/20/18 11:43 Results - Labs 09/21/18 09:02 09/21/18 09:02 Abnormal Lab Results - Last 24 Hours (Table) 09/20/18 09/20/18 09/21/18 Range/Units 13:08 13:08 06:50 RBC (3.80-5.40) m/uL Hgb (11.4-16.0) gm/dL Hct (34.0-46.0) % MCV (80.0-100.0) fL MCH (25.0-35.0) pg MCHC (31.0-37.0) g/dL RDW (11.5-15.5) % Chloride (98-107) mmol/L BUN (7-17) mg/dL Creatinine (0.52-1.04) mg/dL Glucose (74-99) mg/dL POC Glucose (mg/dL) 105 H (75-99) mg/dL Hemoglobin A1c 6.8 H (4.0-6.0) % Total Protein (6.3-8.2) g/dL Albumin (3.5-5.0) g/dL Crossmatch See Detail 09/21/18 09/21/18 09/21/18 Range/Units 09:02 09:02 11:31 RBC 3.75 L (3.80-5.40) m/uL Hgb 8.2 L D (11.4-16.0) gm/dL Hct 26.8 L (34.0-46.0) % MCV 71.5 L (80.0-100.0) fL MCH 21.8 L (25.0-35.0) pg MCHC 30.5 L (31.0-37.0) g/dL RDW 18.4 H (11.5-15.5) % Chloride 109 H (98-107) mmol/L BUN 21 H (7-17) mg/dL Creatinine 1.23 H (0.52-1.04) mg/dL Glucose 147 H (74-99) mg/dL POC Glucose (mg/dL) 130 H (75-99) mg/dL Hemoglobin A1c (4.0-6.0) % Total Protein 6.1 L (6.3-8.2) g/dL Albumin 3.4 L (3.5-5.0) g/dL Crossmatch 09/21/18 09/21/18 Range/Units 16:36 19:53 RBC (3.80-5.40) m/uL Hgb (11.4-16.0) gm/dL Hct (34.0-46.0) % MCV (80.0-100.0) fL MCH (25.0-35.0) pg MCHC (31.0-37.0) g/dL RDW (11.5-15.5) % Chloride (98-107) mmol/L BUN (7-17) mg/dL Creatinine (0.52-1.04) mg/dL Glucose (74-99) mg/dL POC Glucose (mg/dL) 115 H 114 H (75-99) mg/dL Hemoglobin A1c (4.0-6.0) % Total Protein (6.3-8.2) g/dL Albumin (3.5-5.0) g/dL Crossmatch Diabetes panel 09/20/18 09/21/18 Range/Units 13:08 09:02 Sodium 141 (137-145) mmol/L Potassium 4.1 (3.5-5.1) mmol/L Chloride 109 H (98-107) mmol/L Carbon Dioxide 22 (22-30) mmol/L BUN 21 H (7-17) mg/dL Creatinine 1.23 H (0.52-1.04) mg/dL Glucose 147 H (74-99) mg/dL Hemoglobin A1c 6.8 H (4.0-6.0) % Calcium 8.9 (8.4-10.2) mg/dL AST 24 (14-36) U/L ALT 29 (9-52) U/L Alkaline Phosphatase 67 (38-126) U/L Total Protein 6.1 L (6.3-8.2) g/dL Albumin 3.4 L (3.5-5.0) g/dL Calcium panel 09/21/18 Range/Units 09:02 Calcium 8.9 (8.4-10.2) mg/dL Albumin 3.4 L (3.5-5.0) g/dL Pituitary panel 09/21/18 Range/Units 09:02 Sodium 141 (137-145) mmol/L Potassium 4.1 (3.5-5.1) mmol/L Chloride 109 H (98-107) mmol/L Carbon Dioxide 22 (22-30) mmol/L BUN 21 H (7-17) mg/dL Creatinine 1.23 H (0.52-1.04) mg/dL Glucose 147 H (74-99) mg/dL Calcium 8.9 (8.4-10.2) mg/dL Adrenal panel 09/21/18 Range/Units 09:02 Sodium 141 (137-145) mmol/L Potassium 4.1 (3.5-5.1) mmol/L Chloride 109 H (98-107) mmol/L Carbon Dioxide 22 (22-30) mmol/L BUN 21 H (7-17) mg/dL Creatinine 1.23 H (0.52-1.04) mg/dL Glucose 147 H (74-99) mg/dL Calcium 8.9 (8.4-10.2) mg/dL Total Bilirubin 0.5 (0.2-1.3) mg/dL AST 24 (14-36) U/L ALT 29 (9-52) U/L Alkaline Phosphatase 67 (38-126) U/L Total Protein 6.1 L (6.3-8.2) g/dL Albumin 3.4 L (3.5-5.0) g/dL
[2018-09-22] MEDS: ATORVASTATIN 40 MG TAB PO SCH (08:36)
[2018-09-22] MEDS: metFORMIN 500 MG TAB PO SCH ×2 (08:36→18:50)
[2018-09-22] MEDS: PANTOPRAZOLE 40 MG/10 ML VIAL IV SCH (08:36)
[2018-09-22] MEDS: ALLOPURINOL 100 MG TAB PO SCH (08:36)
[2018-09-22] MEDS: AMOXICILLIN 500 MG CAP PO SCH ×2 (08:37→20:44)
[2018-09-22] MEDS: PIOGLITAZONE 15 MG TAB PO SCH (08:37)
[2018-09-22] MEDS: CLARITHROMYCIN 500 MG TAB PO SCH ×2 (08:37→20:44)
[2018-09-22 09:06] LABS: Anisocytosis Slight; Basophils % (A) 0 %; Eosinophils # (A) 0.2 k/uL (0-0.7); Eosinophils % (A) 2 %; HCT 26.7 % (34.0-46.0); HGB 7.9 gm/dL (11.4-16.0); Hypochromasia Marked; Lymphocytes # (A) 1.5 k/uL (1.0-4.8); Lymphocytes % (A) 21 %; MCH 21.4 pg (25.0-35.0); MCHC 29.6 g/dL (31.0-37.0); MCV 72.2 fL (80.0-100.0); Mean Platelet Volume 6.1; Microcytosis Moderate; Monocytes # (A) 0.4 k/uL (0-1.0); Monocytes % (A) 5 %; Neutrophils # (A) 5.1 k/uL (1.3-7.7); Neutrophils % (A) 70 %; Platelet Count 283 k/uL (150-450); Poikilocytosis Moderate; RDW 18.5 % (11.5-15.5); WBC 7.3 k/uL (3.8-10.6)
[2018-09-22 09:22] LABS: Albumin 3.4 g/dL (3.5-5.0); Calcium 9.1 mg/dL (8.4-10.2); Magnesium 1.3 mg/dL (1.6-2.3); Potassium 4.6 mmol/L (3.5-5.1); Total Bilirubin 0.6 mg/dL (0.2-1.3)
[2018-09-22] MEDS: MAGNESIUM SULFATE-D5W PMX 1 GM in DEXTROSE/WATER 1 100ML.BAG IVPB SCH ×3 (10:01→12:53)
--- NOTE | 2018-09-22 10:23 | P.PN ---
Subjective Progress Note Date: 09/22/18 CHIEF COMPLAINT: shortness of breath, anemia HISTORY OF PRESENT ILLNESS: Patient examined at the bedside. She denies abdominal pain. She reports rust colored stools prior to hospitalization. Denies nausea or vomiting. Hemoglobin is 7.9. S/P 2 unit RBCs PHYSICAL EXAM: VITAL SIGNS: Currently stable. GENERAL: Well-developed in no acute distress. HEENT: No sclera icterus. Extraocular movements grossly intact. Moist buccal mucosa. Head is atraumatic, normocephalic. Hears conversational speech. No nasal drainage. NECK: Supple without lymphadenopathy. CHEST: Non-labored respirations and equal bilateral excursions. CARDIOVASCULAR: Regular rate with regular rhythm. Palpable 2+ radial pulses. ABDOMEN: Obese. Soft. Nondistended. Nontender. MUSCULOSKELETAL: No clubbing, cyanosis or edema. NEUROLOGIC: No focal or lateralizing signs. Cranial nerves II through XII grossly intact. PSYCH: Appropriate affect. Alert and oriented to person, place and time. SKIN: Well perfused. Good skin turgor. ASSESSMENT: 1. Acute blood loss anemia, s/p 2 unit RBC transfusion 2. S/P EGD/colonoscopy revealing acute gastritis, colon polyps, and diverticulosis, August 2018 3. Helicobacter pylori positive PLAN: 1. Continue clear liquid diet 2. Continue antibiotics 3. Further recommendations pending once Dr. Arnold evaluates patient Nurse practitioner note has been reviewed by physician. Signing provider agrees with the documented findings, assessment, and plan of care. Objective - Vital Signs Vital signs: Vital Signs Temp 98.2 F 09/22/18 07:00 Pulse 80 09/22/18 07:00 Resp 16 09/22/18 07:00 BP 140/64 09/22/18 07:00 Pulse Ox 98 09/22/18 07:00 Intake & Output 09/21/18 09/22/18 09/22/18 18:59 06:59 18:59 Intake Total 1200 480 Balance 1200 480 Intake: Oral 1200 480 Other: Voiding Method Toilet # Voids 1 1 1 # Bowel Movements 1 1 - Labs CBC & Chem 7: 09/22/18 07:45 09/22/18 07:45 Labs: Abnormal Lab Results - Last 24 Hours (Table) 09/21/18 09/21/18 09/21/18 Range/Units 11:31 16:36 19:53 RBC (3.80-5.40) m/uL Hgb (11.4-16.0) gm/dL Hct (34.0-46.0) % MCV (80.0-100.0) fL MCH (25.0-35.0) pg MCHC (31.0-37.0) g/dL RDW (11.5-15.5) % Chloride (98-107) mmol/L Creatinine (0.52-1.04) mg/dL Glucose (74-99) mg/dL POC Glucose (mg/dL) 130 H 115 H 114 H (75-99) mg/dL Magnesium (1.6-2.3) mg/dL Total Protein (6.3-8.2) g/dL Albumin (3.5-5.0) g/dL 09/22/18 09/22/18 09/22/18 Range/Units 07:12 07:45 07:45 RBC 3.70 L (3.80-5.40) m/uL Hgb 7.9 L (11.4-16.0) gm/dL Hct 26.7 L (34.0-46.0) % MCV 72.2 L (80.0-100.0) fL MCH 21.4 L (25.0-35.0) pg MCHC 29.6 L (31.0-37.0) g/dL RDW 18.5 H (11.5-15.5) % Chloride 109 H (98-107) mmol/L Creatinine 1.20 H (0.52-1.04) mg/dL Glucose 130 H (74-99) mg/dL POC Glucose (mg/dL) 155 H (75-99) mg/dL Magnesium 1.3 L (1.6-2.3) mg/dL Total Protein 6.0 L (6.3-8.2) g/dL Albumin 3.4 L (3.5-5.0) g/dL
[2018-09-22 12:13] LABS: Glucose,Whole Blood 83 mg/dL (75-99)
--- NOTE | 2018-09-22 14:18 | P.PN ---
Subjective Progress Note Date: 09/22/18 Eva Dumont is a 73-year-old female patient of Dr. Shannon Middleton, who presented to [facility] emergency room with a chief complaint of worsening shortness of breath. Hemoglobin on presentation was 6.1. Patient has been following with her primary care physician and with Dr. Arnold for evaluation of anemia she had an EGD and colonoscopy on 09/02/2018 that revealed evidence of acute gastritis, right colon polyp, and diverticulosis. Patient was also diagnosed with positive H. pylori and was started on oral amoxicillin and oral Biaxin however she continued to have worsening anemia and on the day of admission she started having worsening shortness of breath and she decided to come to emergency room. On review of systems: there is no fever or chills no headache or dizziness no chest pain no palpitation no cough no nausea or vomiting no abdominal pain no diarrhea no burning with urination no frequency no urgency and no hematuria patient stated that her stool has been kash color On 09/22/2018 patient's alert and oriented 3. Patient did receive 2 units of PRBCs. Currently 7.9. Patient denies chest pain or shortness of breath. Patient denies nausea vomiting or diarrhea. Patient denies any urinary burning or frequency. Patient is maintained on a clear diet per surgical services at this time Objective - Vital Signs Vital signs: Vital Signs Temp 98.2 F 09/22/18 07:00 Pulse 80 09/22/18 07:00 Resp 16 09/22/18 08:00 BP 140/64 09/22/18 07:00 Pulse Ox 98 09/22/18 07:00 Intake & Output 09/21/18 09/22/18 09/22/18 18:59 06:59 18:59 Intake Total 1200 480 Balance 1200 480 Intake: Oral 1200 480 Other: Voiding Method Toilet Toilet # Voids 1 1 1 # Bowel Movements 1 1 - Exam Head normocephalic. Neck supple no JVD no goiter Lungs clear to auscultation bilaterally no wheezing or crackles Heart regular rate and rhythm S1-S2, no rub or gallop Abdomen is soft nontender nondistended positive bowel sounds no hepatosplenomegaly Extremities no edema no cyanosis or clubbing Neuro alert and orientated X 3, no gross focal deficit - Labs CBC & Chem 7: 09/22/18 07:45 09/22/18 07:45 Labs: Abnormal Lab Results - Last 24 Hours (Table) 09/21/18 09/21/18 09/22/18 Range/Units 16:36 19:53 07:12 RBC (3.80-5.40) m/uL Hgb (11.4-16.0) gm/dL Hct (34.0-46.0) % MCV (80.0-100.0) fL MCH (25.0-35.0) pg MCHC (31.0-37.0) g/dL RDW (11.5-15.5) % Chloride (98-107) mmol/L Creatinine (0.52-1.04) mg/dL Glucose (74-99) mg/dL POC Glucose (mg/dL) 115 H 114 H 155 H (75-99) mg/dL Magnesium (1.6-2.3) mg/dL Total Protein (6.3-8.2) g/dL Albumin (3.5-5.0) g/dL 09/22/18 09/22/18 Range/Units 07:45 07:45 RBC 3.70 L (3.80-5.40) m/uL Hgb 7.9 L (11.4-16.0) gm/dL Hct 26.7 L (34.0-46.0) % MCV 72.2 L (80.0-100.0) fL MCH 21.4 L (25.0-35.0) pg MCHC 29.6 L (31.0-37.0) g/dL RDW 18.5 H (11.5-15.5) % Chloride 109 H (98-107) mmol/L Creatinine 1.20 H (0.52-1.04) mg/dL Glucose 130 H (74-99) mg/dL POC Glucose (mg/dL) (75-99) mg/dL Magnesium 1.3 L (1.6-2.3) mg/dL Total Protein 6.0 L (6.3-8.2) g/dL Albumin 3.4 L (3.5-5.0) g/dL Assessment and Plan Assessment: #1 Shortness of breath, likely related to anemia, chest x-ray on presentation reveals normal chest #2 Anemia, hemoglobin on presentation 6.1, patient received 2 units of red blood cell transfusion last night hemoglobin today 8.2. Patient underwent EGD and colonoscopy by Dr. Arnold which revealed evidence of right colon polyp, diverticulosis, antral gastritis, and positive H. pylori per patient, she was started on a course of Biaxin and amoxicillin. hemoglobin today 7.9 patient remains on Biaxin and amoxicillin. Patient currently on clear liquid diet #3 acute kidney injury on presentation likely related to dehydration and prerenal azotemia BUN up to 30 creatinine up to 1.56 on admission . creatinine down to 1.20n #4 Insulin requiring diabetes mellitus, insulin is on hold at this time patient is nothing by mouth she is being covered with sliding scale #5 Underlying history of hypertension, blood pressure was elevated on presentation Will monitor closely and adjust blood pressure medications if needed #6 Underlying history of hypothyroiism #7 Underlying history of hyperlipidemia DVT prophylaxis SCD stockings GI prophylaxis, patient on Protonix I performed an examination of the patient and discussed their management with the Nurse Practitioner. I have reviewed the Nurse Practitioner's notes and agree with the documented findings and plan of care
[2018-09-22 17:40] LABS: Glucose,Whole Blood 103 mg/dL (75-99)
[2018-09-22] MEDS: LEVOTHYROXINE 25 MCG TAB PO SCH (18:31)
[2018-09-22] MEDS: LISINOPRIL 10 MG TAB PO SCH (18:31)
[2018-09-22] MEDS: INSULIN DETEMIR (LEVEMIR) 100 UNIT/ML SYR SQ SCH (20:44)
[2018-09-22] MEDS: ASPIRIN-ACET-CAFF 250-250-65MG 1 EACH TAB PO SCH (20:44)
[2018-09-22] MEDS: PANTOPRAZOLE 40 MG TABLET PO SCH (20:44)
[2018-09-22 20:54] LABS: Glucose,Whole Blood 113 mg/dL (75-99)
[2018-09-23 01:08] VITALS: RESP 18
[2018-09-23 06:34] VITALS: BP 159/72; PULSE 79; TEMP 97.7
[2018-09-23 07:02] LABS: Glucose,Whole Blood 138 mg/dL (75-99)
[2018-09-23] MEDS: ATORVASTATIN 40 MG TAB PO SCH (08:15)
[2018-09-23] MEDS: metFORMIN 500 MG TAB PO SCH (08:15)
[2018-09-23] MEDS: ALLOPURINOL 100 MG TAB PO SCH (08:15)
[2018-09-23] MEDS: PANTOPRAZOLE 40 MG TABLET PO SCH (08:15)
[2018-09-23] MEDS: CLARITHROMYCIN 500 MG TAB PO SCH (08:16)
[2018-09-23] MEDS: AMOXICILLIN 500 MG CAP PO SCH (08:16)
[2018-09-23] MEDS: PIOGLITAZONE 15 MG TAB PO SCH (08:16)
[2018-09-23 10:28] LABS: Albumin 3.6 g/dL (3.5-5.0); Calcium 9.4 mg/dL (8.4-10.2); Magnesium 1.9 mg/dL (1.6-2.3); Potassium 4.8 mmol/L (3.5-5.1); Total Bilirubin 0.5 mg/dL (0.2-1.3); Total Protein 6.3 g/dL (6.3-8.2)
[2018-09-23 10:51] LABS: Anisocytosis Slight; HCT 29.4 % (34.0-46.0); HGB 8.5 gm/dL (11.4-16.0); Hypochromasia Marked; MCH 21.2 pg (25.0-35.0); MCV 73.1 fL (80.0-100.0); Mean Platelet Volume 7.6; Microcytosis Moderate; Platelet Count 338 k/uL (150-450); Poikilocytosis Moderate; RBC 4.02 m/uL (3.80-5.40); RDW 19.1 % (11.5-15.5); WBC 6.5 k/uL (3.8-10.6)
--- NOTE | 2018-09-23 10:57 | P.PN ---
Subjective Progress Note Date: 09/23/18 CHIEF COMPLAINT: shortness of breath, anemia HISTORY OF PRESENT ILLNESS: Patient examined at the bedside. She denies abdominal pain. Denies nausea or vomiting. Hemoglobin is 8.5. She is anxious to be discharged home. PHYSICAL EXAM: VITAL SIGNS: Currently stable. GENERAL: Well-developed in no acute distress. HEENT: No sclera icterus. Extraocular movements grossly intact. Moist buccal mucosa. Head is atraumatic, normocephalic. Hears conversational speech. No nasal drainage. NECK: Supple without lymphadenopathy. CHEST: Non-labored respirations and equal bilateral excursions. CARDIOVASCULAR: Regular rate with regular rhythm. Palpable 2+ radial pulses. ABDOMEN: Obese. Soft. Nondistended. Nontender. MUSCULOSKELETAL: No clubbing, cyanosis or edema. NEUROLOGIC: No focal or lateralizing signs. Cranial nerves II through XII grossly intact. PSYCH: Appropriate affect. Alert and oriented to person, place and time. SKIN: Well perfused. Good skin turgor. ASSESSMENT: 1. Acute blood loss anemia, s/p 2 unit RBC transfusion 2. S/P EGD/colonoscopy revealing acute gastritis, colon polyps, and diverticulosis, August 2018 3. Helicobacter pylori positive PLAN: Hemoglobin remains stable. No surgical intervention advised per Dr. Arnold. patient is stable for discharge from a surgical standpoint. Nurse practitioner note has been reviewed by physician. Signing provider agrees with the documented findings, assessment, and plan of care. Objective - Vital Signs Vital signs: Vital Signs Temp 97.7 F 09/23/18 05:35 Pulse 79 09/23/18 05:35 Resp 18 09/23/18 05:35 BP 159/72 09/23/18 05:35 Pulse Ox 96 09/23/18 05:35 Intake & Output 09/22/18 09/23/18 09/23/18 18:59 06:59 18:59 Intake Total 1440 750 Balance 1440 750 Intake: Oral 1440 750 Other: Voiding Method Toilet Toilet # Voids 2 2 # Bowel Movements 1 - Labs CBC & Chem 7: 09/23/18 08:51 09/23/18 08:51 Labs: Abnormal Lab Results - Last 24 Hours (Table) 09/22/18 09/22/18 09/23/18 Range/Units 17:17 20:40 06:47 Hgb (11.4-16.0) gm/dL Hct (34.0-46.0) % MCV (80.0-100.0) fL MCH (25.0-35.0) pg MCHC (31.0-37.0) g/dL RDW (11.5-15.5) % Creatinine (0.52-1.04) mg/dL Glucose (74-99) mg/dL POC Glucose (mg/dL) 103 H 113 H 138 H (75-99) mg/dL 09/23/18 09/23/18 Range/Units 08:51 08:51 Hgb 8.5 L (11.4-16.0) gm/dL Hct 29.4 L (34.0-46.0) % MCV 73.1 L (80.0-100.0) fL MCH 21.2 L (25.0-35.0) pg MCHC 29.0 L (31.0-37.0) g/dL RDW 19.1 H (11.5-15.5) % Creatinine 1.32 H (0.52-1.04) mg/dL Glucose 156 H (74-99) mg/dL POC Glucose (mg/dL) (75-99) mg/dL
[2018-09-23 11:16] LABS: Lymphocytes # (M) 1.95 k/uL (1.0-4.8); Monocytes # (M) 0.46 k/uL (0-1.0); Neutrophils % (M) 60 %; Nucleated Red Blood Cells 0 /100 WBC (0-0); Total Cells Counted 100
--- NOTE | 2018-09-23 11:32 | P.DS ---
Providers Date of admission: 09/20/18 14:55 Expected date of discharge: 09/23/18 Attending physician: Elisa Cartwright Consults: 09/20/18 14:52 Consult Physician Routine Consulting Provider: Eric Arnold Consult Reason/Comments: Anemia Do you want consulting provider notified?: Yes Primary care physician: Shannon Middleton [facility] Course: Discharge Diagnosis #1 Shortness of breath, likely related to anemia, chest x-ray on presentation reveals normal chest. Resolved #2 Anemia, hemoglobin on presentation 6.1, patient received 2 units of red blood cell transfusion last night hemoglobin today 8.2. Patient underwent EGD and colonoscopy by Dr. Arnold which revealed evidence of right colon polyp, diverticulosis, antral gastritis, and positive H. pylori per patient, she was started on a course of Biaxin and amoxicillin. hemoglobin today 7.9 patient remains on Biaxin and amoxicillin. Patient's hemoglobin 8.5. Patient has been cleared by surgical services for discharge. Patient feels much improved. Patient to resume Biaxin and amoxicillin and follow up with PCP at home #3 acute kidney injury on presentation likely related to dehydration and prerenal azotemia BUN up to 30 creatinine up to 1.56 on admission . creatinine 1.32. Patient to follow-up outpatient with PCP. Repeat CMP for 2 days #4 Insulin requiring diabetes mellitus, insulin is on hold at this time patient is nothing by mouth she is being covered with sliding scale #5 Underlying history of hypertension, blood pressure was elevated on presentation Will monitor closely and adjust blood pressure medications if needed #6 Underlying history of hypothyroiism #7 Underlying history of hyperlipidemia Hospital Course Eva Dumont is a 73-year-old female patient of Dr. Shannon Middleton, who presented to [facility] emergency room with a chief complaint of worsening shortness of breath. Hemoglobin on presentation was 6.1. Patient has been following with her primary care physician and with Dr. Arnold for evaluation of anemia she had an EGD and colonoscopy on 09/02/2018 that revealed evidence of acute gastritis, right colon polyp, and diverticulosis. Patient was also diagnosed with positive H. pylori and was started on oral amoxicillin and oral Biaxin however she continued to have worsening anemia and on the day of admission she started having worsening shortness of breath and she decided to come to emergency room. On review of systems: there is no fever or chills no headache or dizziness no chest pain no palpitation no cough no nausea or vomiting no abdominal pain no diarrhea no burning with urination no frequency no urgency and no hematuria patient stated that her stool has been kash color On 09/22/2018 patient's alert and oriented 3. Patient did receive 2 units of PRBCs. Currently 7.9. Patient denies chest pain or shortness of breath. Patient denies nausea vomiting or diarrhea. Patient denies any urinary burning or frequency. Patient is maintained on a clear diet per surgical services at this time On 09/23/2018 patient remains alert and oriented 3. Patient is very eager to go home. Patient has been cleared by surgical services. Hemoglobin continued to trending up to 8.5. Patient denies chest pain or shortness of breath. Patient denies nausea vomiting or diarrhea. Patient denies any urinary burning or frequency. Patient has been tolerating diet. Patient to continue home antibiotics of Biaxin and amoxicillin and follow-up PCP Repeat CMP and CBC ordered for 2 days I performed an examination of the patient and discussed their management with the Nurse Practitioner. I have reviewed the Nurse Practitioner's notes and agree with the documented findings and plan of care Patient Condition at Discharge: Stable Plan - Discharge Summary New Discharge Prescriptions: Continue Lisinopril 10 mg PO DAILY@1800 Levothyroxine Sodium [Synthroid] 25 mcg PO DAILY@1800 Allopurinol 200 mg PO DAILY Insulin Glargine [Lantus] 18 units SQ HS Atorvastatin [Lipitor] 40 mg PO DAILY Pioglitazone [Actos] 15 mg PO QAM metFORMIN HCL [Glucophage] 500 mg PO QAM metFORMIN HCL [Glucophage] 1,000 mg PO AC-SUPPER Clarithromycin [Biaxin] 500 mg PO Q12HR Aspirin EC [Ecotrin Low Dose] 81 mg PO DAILY Amoxicillin 1,000 mg PO BID Omeprazole 20 mg PO BID Discharge Medication List Allopurinol 200 mg PO DAILY 01/13/15 [History] Insulin Glargine [Lantus] 18 units SQ HS 01/13/15 [History] Levothyroxine Sodium [Synthroid] 25 mcg PO DAILY@1800 01/13/15 [History] Lisinopril 10 mg PO DAILY@1800 01/13/15 [History] Atorvastatin [Lipitor] 40 mg PO DAILY 01/25/15 [History] Pioglitazone [Actos] 15 mg PO QAM 08/29/18 [History] metFORMIN HCL [Glucophage] 1,000 mg PO AC-SUPPER 08/29/18 [History] metFORMIN HCL [Glucophage] 500 mg PO QAM 08/29/18 [History] Amoxicillin 1,000 mg PO BID 09/20/18 [History] Aspirin EC [Ecotrin Low Dose] 81 mg PO DAILY 09/20/18 [History] Clarithromycin [Biaxin] 500 mg PO Q12HR 09/20/18 [History] Omeprazole 20 mg PO BID 09/20/18 [History] Follow up Appointment(s)/Referral(s): Shannon Middleton DO [Primary Care Provider] - 1-2 days Ambulatory/Diagnostic Orders: Complete Blood Count w/diff [LAB.AMB] Time Frame: 2 Days, Location: None Selected Comprehensive Metabolic Panel [LAB.AMB] Time Frame: 2 Days, Location: None Selected Activity/Diet/Wound Care/Special Instructions: Activity as tolerated Diet heart healthy, consistent carb Discharge Disposition: HOME SELF-CARE
[2018-09-23 12:37] LABS: Glucose,Whole Blood 97 mg/dL (75-99)
[2018-09-24] MEDS ORDERED: CLARITHROMYCIN 500 MG TAB PO SCH (09:00)
== END 2018-09-23 13:39 | disposition home or self-care (01) | DRG 812 ==
LOC: EC 11:37 → 4MS4W 14:55
PROVIDERS: ADMIT Internal Medicine; ATTEND Internal Medicine
PROC: 30233N1 Transfusion of Nonautologous Red Blood Cells into Peripheral Vein, Percutaneous Approach (ICD-10-PCS; principal; 2018-09-20)
DX: D62 Acute posthemorrhagic anemia (principal); N17.9 Acute kidney failure, unspecified; B96.81 Helicobacter pylori [H. pylori] as the cause of diseases classified elsewhere; E11.9 Type 2 diabetes mellitus without complications; E78.5 Hyperlipidemia, unspecified; E83.42 Hypomagnesemia; E03.9 Hypothyroidism, unspecified; E86.0 Dehydration; I10 Essential (primary) hypertension; K29.60 Other gastritis without bleeding; K57.90 Diverticulosis of intestine, part unspecified, without perforation or abscess without bleeding; Z79.4 Long term (current) use of insulin; Z79.82 Long term (current) use of aspirin; Z79.890 Hormone replacement therapy; Z79.899 Other long term (current) drug therapy; Z82.49 Family history of ischemic heart disease and other diseases of the circulatory system; Z86.010 Personal history of colon polyps; Z86.73 Personal history of transient ischemic attack (TIA), and cerebral infarction without residual deficits; Z87.891 Personal history of nicotine dependence; Z90.710 Acquired absence of both cervix and uterus
CPT/HCPCS: 36415; 71046; 80053; 82272; 82550; 82553; 83036; 83735; 83880; 84484; 85025; 85610; 85730; 86850; 86900; 86901; 86920; 93005; 96365; 99291

== ENCOUNTER → 2018-11-19 | Outpatient (CLI) | payer MEDICARE, BC ==
--- NOTE | 2018-11-20 06:48 | CT ---
EXAMINATION TYPE: CT brain wo con DATE OF EXAM: 11/19/2018 HISTORY: confusion, memory loss CT DLP: 1177 mGycm. Automated Exposure Control for Dose Reduction was Utilized. TECHNIQUE: CT scan of the head is performed without contrast. COMPARISON: None. FINDINGS: There is no acute intracranial hemorrhage or midline shift identified. There is right fro ntal craniotomy change with large area of encephalomalacia involving the right frontal lobe in the MC A distribution. There is aneurysm clip inferiorly with additional area of encephalomalacia inferior r ight frontal lobe. There is background diffuse ventricular and sulcal prominence consistent with diff use age-related cerebral atrophy. The globes are intact and the visualized sinuses are clear. IMPRESSION: No acute intracranial hemorrhage or midline shift. Prior right-sided surgery with areas of encephalomalacia right frontal lobe. There is background mild diffuse cerebral atrophy noted.
== END ==
LOC: RADCTMAIN 16:00
PROVIDERS: ATTEND Psychiatry & Neurology Neurology
DX: G31.9 Degenerative disease of nervous system, unspecified (principal); G93.89 Other specified disorders of brain
CPT/HCPCS: 70450

== ENCOUNTER 2019-08-31 17:20 | Inpatient (IN) | payer MEDICARE, BC ==
[2019-08-31] MEDS ORDERED: ASPIRIN 81 MG PO STA (18:32)
--- NOTE | 2019-08-31 18:39 | ED ---
General Adult HPI - General Chief complaint: Recheck/Abnormal Lab/Rx Stated complaint: anemia Time Seen by Provider: 08/31/19 18:22 Source: patient Mode of arrival: wheelchair Limitations: no limitations - History of Present Illness Initial comments: Patient is 74-year-old female with history of dementia, type 2 diabetes, hypertension and hyperlipidemia presenting to the emergency department with a chief complaint of abnormal labs. The states that the patient was at the primary care office for routine visit and blood work was obtained. Patient was contacted later today regarding the lab results and advised to come to the ED for further evaluation. also states the patient has developed dyspnea on exertion over the last 2 months. Patient also reports during that time she has developed midsternal chest pain on exertion without any radiation. Patient also reports some lightheadedness with exertion. The states the patient is scheduled to see a construction sales manager, Dr. Diop, in 2 days. The states that she was admitted previously for anemia but no exact cause was determined. Denies any nausea, dizziness, headaches, blurry vision, one-sided weakness or paresthesias. Patient denies any back pain or abdominal pain. - Related Data Home Medications Medication Instructions Recorded Confirmed Allopurinol 200 mg PO DAILY 01/13/15 08/31/19 Levothyroxine Sodium [Synthroid] 25 mcg PO DAILY 01/13/15 08/31/19 Lisinopril 10 mg PO DAILY 01/13/15 08/31/19 Atorvastatin [Lipitor] 40 mg PO DAILY 01/25/15 08/31/19 Pioglitazone [Actos] 15 mg PO DAILY 08/29/18 08/31/19 Aspirin EC [Ecotrin Low Dose] 81 mg PO DAILY 09/20/18 08/31/19 Cyanocobalamin (Vitamin B-12) 1,000 mcg PO DAILY 08/31/19 08/31/19 [Vitamin B-12] Donepezil [Aricept] 10 mg PO HS 08/31/19 08/31/19 Sertraline [Zoloft] 25 mg PO DAILY 08/31/19 08/31/19 metFORMIN HCL ER [Glucophage Xr] 500 mg PO BID 08/31/19 08/31/19 risperiDONE 0.25 mg PO TID 08/31/19 08/31/19 Previous Rx's Medication Instructions Recorded Ferrous Sulfate [Feosol] 325 mg PO DAILY #30 tab 09/03/19 Pantoprazole [Protonix] 40 mg PO NAN-FERNKFST #30 tablet. 09/03/19 Sennosides-Docusate Sodium 2 tab PO BID #60 tablet 09/03/19 [Senokot-S] Allergies Allergy/AdvReac Type Severity Reaction Status Date / Time No Known Allergies Allergy Verified 08/31/19 19:34 Review of Systems ROS Statement: Those systems with pertinent positive or pertinent negative responses have been documented in the HPI. ROS Other: All systems not noted in ROS Statement are negative. Past Medical History Past Medical History: CVA/TIA, Diabetes Mellitus, Hyperlipidemia, Hypertension, Osteoarthritis (OA), Skin Disorder Additional Past Medical History / Comment(s): STATES IS ANEMIC, HX BRAIN ANEURYSM, PSORIASIS, GOUT History of Any Multi-Drug Resistant Organisms: None Reported, MRSA Date of last positivie culture/infection: SUMMER 2013 MDRO Source:: CHEST,BREAST,STOMACH Past Surgical History: Appendectomy, Hysterectomy, Orthopedic Surgery Additional Past Surgical History / Comment(s): BRAIN ANEURYSM CLIPPED,RT SHOULDER SURGERY, GANGLION CYST REMOVED RT HAND,CYST AND NODULE REMOVED RT BREAST, Past Anesthesia/Blood Transfusion Reactions: Previous Problems w/ Anesthesia, Motion Sickness Additional Past Anesthesia/Blood Transfusion Reaction / Comment(s): STATES FELT "SEVERE PAIN" WITH PREVIOUS COLONOSCOPY, WITH PREV. GENERAL ANESTHESIA STATES SHE HAD HALLUCINATIONS Past Psychological History: No Psychological Hx Reported Smoking Status: Former smoker Past Alcohol Use History: Rare Past Drug Use History: None Reported - Past Family History Mother Additional Family Medical History / Comment(s): PRECANCEROUS BREAST CELLS- MASTECTOMY Father Family Medical History: Myocardial Infarction ([place]) General Exam Limitations: no limitations General appearance: alert, in no apparent distress, obese Head exam: Present: atraumatic, normocephalic, normal inspection Eye exam: Present: normal appearance, PERRL, EOMI, scleral icterus Pupils: Present: normal accommodation ENT exam: Present: normal exam, normal oropharynx, mucous membranes moist (Mild pale mucous membranes) Neck exam: Present: normal inspection, full ROM Respiratory exam: Present: normal lung sounds bilaterally. Absent: respiratory distress, wheezes, rales Cardiovascular Exam: Present: regular rate, normal rhythm, normal heart sounds Extremities exam: Present: normal inspection, full ROM, normal capillary refill, other (+2 ulnar and radial pulses bilaterally.) Back exam: Present: normal inspection, full ROM Neurological exam: Present: alert, oriented X3 Psychiatric exam: Present: normal affect, normal mood Skin exam: Present: warm, dry, intact, normal color Course Vital Signs 08/31/19 08/31/19 08/31/19 18:01 21:22 22:42 Temperature 98 F 98.2 F Pulse Rate 98 104 H 100 Respiratory 16 16 18 Rate Blood Pressure 118/45 126/60 131/61 O2 Sat by Pulse 98 97 98 Oximetry 08/31/19 09/01/19 09/01/19 23:40 00:30 00:45 Temperature 98.1 F 98.2 F 98.2 F Pulse Rate 98 98 97 Respiratory 18 18 16 Rate Blood Pressure 127/50 117/33 125/41 O2 Sat by Pulse 100 100 Oximetry 09/01/19 09/01/19 09/01/19 01:00 01:15 01:30 Temperature 98.0 F 98.2 F 98.0 F Pulse Rate 93 93 87 Respiratory 16 16 16 Rate Blood Pressure 109/42 126/47 117/63 O2 Sat by Pulse 100 100 Oximetry 09/01/19 09/01/19 09/01/19 02:25 02:36 02:45 Temperature 98.1 F 98.0 F Pulse Rate 90 90 Respiratory 16 16 Rate Blood Pressure 109/42 117/57 117/57 O2 Sat by Pulse 100 100 Oximetry 09/01/19 09/01/19 02:55 03:00 Temperature 98.1 F 98 F Pulse Rate 92 94 Respiratory 16 16 Rate Blood Pressure 133/64 105/57 O2 Sat by Pulse 100 Oximetry EKG Findings - EKG Comments: EKG Findings:: Sinus rhythm, right axis deviation, inverted T waves in lead 3 compared to last EKG. Ventricular rate 97, MS interval 144, QRS duration 76, QTC 467. Medical Decision Making - Medical Decision Making Patient is 74-year-old female with history of dementia, type 2 diabetes, hypertension and hyperlipidemia presenting to the emergency department with a chief complaint of abnormal labs. Patient was contacted by the primary care to go to the ED for abnormal labs after department in early this morning. Patient is also been complaining of dyspnea and chest pain on exertion over the last month. Patient is a hemoglobin of 6.7. Labs were ordered the patient is a difficult woke and it took quite a bit of time for blood work to be obtained and IV access to be established. At the most recent visit, she did not have an ALLERGY but now she does. Most common antigens were ruled out the patient was able to receive blood. Patient will be admitted for anemia, dyspnea and chest pain on exertion. - Lab Data Result diagrams: 09/03/19 09:08 09/03/19 09:08 Lab Results 08/31/19 08/31/19 08/31/19 Range/Units 20:40 20:40 20:40 WBC 8.2 (3.8-10.6) k/uL RBC 2.78 L (3.80-5.40) m/uL Hgb 4.6 L* (11.4-16.0) gm/dL Hct 19.3 L* (34.0-46.0) % MCV 69.5 L (80.0-100.0) fL MCH 16.7 L (25.0-35.0) pg MCHC 24.0 L (31.0-37.0) g/dL RDW 17.8 H (11.5-15.5) % Plt Count 446 (150-450) k/uL Neutrophils % 64 % Lymphocytes % 28 % Monocytes % 5 % Eosinophils % 2 % Basophils % 0 % Neutrophils # 5.2 (1.3-7.7) k/uL Lymphocytes # 2.3 (1.0-4.8) k/uL Monocytes # 0.4 (0-1.0) k/uL Eosinophils # 0.1 (0-0.7) k/uL Basophils # 0.0 (0-0.2) k/uL Hypochromasia Marked Poikilocytosis Moderate Anisocytosis Slight Microcytosis Marked PT (9.0-12.0) sec INR (<1.2) APTT (22.0-30.0) sec Sodium 143 (137-145) mmol/L Potassium 4.9 (3.5-5.1) mmol/L Chloride 113 H (98-107) mmol/L Carbon Dioxide 22 (22-30) mmol/L Anion Gap 8 mmol/L BUN 30 H (7-17) mg/dL Creatinine 1.58 H (0.52-1.04) mg/dL Est GFR (CKD-EPI)AfAm 37 (>60 ml/min/1.73 sqM) Est GFR (CKD-EPI)NonAf 32 (>60 ml/min/1.73 sqM) Glucose 107 H (74-99) mg/dL Calcium 9.3 (8.4-10.2) mg/dL Magnesium 1.6 (1.6-2.3) mg/dL Total Bilirubin 0.3 (0.2-1.3) mg/dL AST 20 (14-36) U/L ALT 12 (4-34) U/L Alkaline Phosphatase 79 (38-126) U/L Troponin I (0.000-0.034) ng/mL Total Protein 6.4 (6.3-8.2) g/dL Albumin 3.6 (3.5-5.0) g/dL Stool Occult Blood (Negative) Blood Type B Positive Blood Type Recheck B Pos Bld Type Recheck Status No Antibody Screen POSITIVE Antibody Identification Clin Significant ABs Ruled Out Direct Antiglob Test Negative Crossmatch See Detail Spec Expiration Date 09/03/2019 - 233908/31/19 08/31/19 08/31/19 Range/Units 20:40 20:40 21:45 WBC (3.8-10.6) k/uL RBC (3.80-5.40) m/uL Hgb (11.4-16.0) gm/dL Hct (34.0-46.0) % MCV (80.0-100.0) fL MCH (25.0-35.0) pg MCHC (31.0-37.0) g/dL RDW (11.5-15.5) % Plt Count (150-450) k/uL Neutrophils % % Lymphocytes % % Monocytes % % Eosinophils % % Basophils % % Neutrophils # (1.3-7.7) k/uL Lymphocytes # (1.0-4.8) k/uL Monocytes # (0-1.0) k/uL Eosinophils # (0-0.7) k/uL Basophils # (0-0.2) k/uL Hypochromasia Poikilocytosis Anisocytosis Microcytosis PT 10.0 (9.0-12.0) sec INR 1.0 (<1.2) APTT 21.2 L (22.0-30.0) sec Sodium (137-145) mmol/L Potassium (3.5-5.1) mmol/L Chloride (98-107) mmol/L Carbon Dioxide (22-30) mmol/L Anion Gap mmol/L BUN (7-17) mg/dL Creatinine (0.52-1.04) mg/dL Est GFR (CKD-EPI)AfAm (>60 ml/min/1.73 sqM) Est GFR (CKD-EPI)NonAf (>60 ml/min/1.73 sqM) Glucose (74-99) mg/dL Calcium (8.4-10.2) mg/dL Magnesium (1.6-2.3) mg/dL Total Bilirubin (0.2-1.3) mg/dL AST (14-36) U/L ALT (4-34) U/L Alkaline Phosphatase (38-126) U/L Troponin I 0.014 (0.000-0.034) ng/mL Total Protein (6.3-8.2) g/dL Albumin (3.5-5.0) g/dL Stool Occult Blood Negative (Negative) Blood Type Blood Type Recheck Bld Type Recheck Status Antibody Screen Antibody Identification Direct Antiglob Test Crossmatch Spec Expiration Date Disposition Clinical Impression: Anemia, Dyspnea on exertion, Chest pain on exertion Disposition: ADMITTED IP TO THIS [facility] Condition: Stable Is patient prescribed a controlled substance at d/c from ED?: No Time of Disposition: 21:35
[2019-08-31 21:00] LABS: Anisocytosis Slight; Basophils % (A) 0 %; Eosinophils # (A) 0.1 k/uL (0-0.7); Eosinophils % (A) 2 %; Hypochromasia Marked; Lymphocytes # (A) 2.3 k/uL (1.0-4.8); Lymphocytes % (A) 28 %; MCH 16.7 pg (25.0-35.0); MCV 69.5 fL (80.0-100.0); Mean Platelet Volume 7.1; Microcytosis Marked; Monocytes # (A) 0.4 k/uL (0-1.0); Monocytes % (A) 5 %; Neutrophils # (A) 5.2 k/uL (1.3-7.7); Neutrophils % (A) 64 %; Platelet Count 446 k/uL (150-450); Poikilocytosis Moderate; RBC 2.78 m/uL (3.80-5.40); RDW 17.8 % (11.5-15.5); WBC 8.2 k/uL (3.8-10.6)
--- NOTE | 2019-08-31 21:13 | XR ---
EXAMINATION TYPE: XR chest 2V DATE OF EXAM: 08/31/2019 COMPARISON: Prior chest x-ray 09/20/2018 HISTORY: Chest pain TECHNIQUE: Frontal and lateral views of the chest are obtained. FINDINGS: The patient is rotated. Postop changes are noted to the left shoulder. There are overlying cardiac leads. There may be spinal curvature. Heart size is likely stable accounting for technique. N o definite airspace disease, pneumothorax, or pleural effusion. Retrocardiac lucency is questioned. Q uestion some subsegmental basilar atelectatic change. IMPRESSION: Possible basilar atelectatic change, question hiatal hernia. Correlate to exclude pneumo jean carlos and follow-up as indicated.
[2019-08-31 21:18] LABS: Albumin 3.6 g/dL (3.5-5.0); Calcium 9.3 mg/dL (8.4-10.2); Magnesium 1.6 mg/dL (1.6-2.3); Potassium 4.9 mmol/L (3.5-5.1); Total Bilirubin 0.3 mg/dL (0.2-1.3); Total Protein 6.4 g/dL (6.3-8.2)
[2019-08-31 21:25] LABS: HGB 4.6 gm/dL (11.4-16.0)
[2019-08-31 21:26] LABS: HCT 19.3 % (34.0-46.0)
[2019-08-31 21:32] LABS: Partial Thromboplastin Time 21.2 sec (22.0-30.0)
[2019-08-31] MEDS ORDERED: PANTOPRAZOLE 40 MG/10 ML VIAL IVP STA (21:46)
[2019-08-31] MEDS ORDERED: ONDANSETRON 4 MG/2 ML VIAL IVP PRN (23:32)
[2019-08-31] MEDS ORDERED: NALOXONE 0.4 MG/ML 1 ML VIAL IV PRN (23:32)
[2019-09-01] MEDS ORDERED: SODIUM CHLORIDE 0.9% 500 ML 250 ML IV ONE (03:19)
[2019-09-01 06:26] LABS: Glucose,Whole Blood 110 mg/dL (75-99)
[2019-09-01 09:18] LABS: Anisocytosis Slight; Hypochromasia Marked; MCH 20.2 pg (25.0-35.0); MCHC 27.4 g/dL (31.0-37.0); Mean Platelet Volume 8.9; Microcytosis Moderate; Platelet Count 374 k/uL (150-450); Poikilocytosis Marked; RBC 3.38 m/uL (3.80-5.40); RDW 19.3 % (11.5-15.5); WBC 8.9 k/uL (3.8-10.6)
[2019-09-01 09:20] LABS: HGB 6.8 gm/dL (11.4-16.0)
[2019-09-01 10:56] LABS: Reticulocyte % 1.8 % (0.5-2.0)
[2019-09-01 12:10] LABS: Glucose,Whole Blood 133 mg/dL (75-99)
[2019-09-01] MEDS ORDERED: PEG 3350-NA SULF,BICARB,CL/KCL 4,000 ML BOTTLE PO ONE (14:00)
[2019-09-01 14:33] LABS: Anisocytosis Moderate; HCT 24.1 % (34.0-46.0); Hypochromasia Marked; MCH 21.2 pg (25.0-35.0); MCHC 28.9 g/dL (31.0-37.0); MCV 73.5 fL (80.0-100.0); Microcytosis Marked; Platelet Count 372 k/uL (150-450); Poikilocytosis Marked; RBC 3.29 m/uL (3.80-5.40); RDW 20.1 % (11.5-15.5); WBC 8.3 k/uL (3.8-10.6)
--- NOTE | 2019-09-01 16:06 | P.CONS ---
History of Present Illness - Reason for Consult Consult date: 09/01/19 anemia Requesting physician: Alee Xie - Chief Complaint Chest pain - History of Present Illness Mrs. Dumont is a very pleasantly confused female pt who we have been asked to see regarding severe anemia. She was admitted for abn labs on routine blood check. Pt noted SOB on exertion and pale. Pt was anemic at her visit 1 year ago when she was diagnosed with H-pylori infection and treated for the same, she received 2 units of blood. She had no other instances of anemia requiring transfusion since then. She had been doing well, then she was started on medications for dementia about 4 months ago. noted intermittent nausea, occasional vomiting. Admitted with Hgb of 4.8, s/p 2 units of PRBCs with appropriate increase in Hgb. No recent illnesses, fevers, cough, acute changes in bowel or bladder habits. Never had noted bleeding. Review of Systems 14 point ROS is negative except as stated in HPI Past Medical History Past Medical History: CVA/TIA, Diabetes Mellitus, Hyperlipidemia, Hypertension, Osteoarthritis (OA), Skin Disorder Additional Past Medical History / Comment(s): STATES IS ANEMIC, HX BRAIN ANEURYSM, PSORIASIS, GOUT History of Any Multi-Drug Resistant Organisms: None Reported, MRSA Year Discovered:: SUMMER 2013 MDRO Source:: CHEST,BREAST,STOMACH Past Surgical History: Appendectomy, Hysterectomy, Orthopedic Surgery Additional Past Surgical History / Comment(s): BRAIN ANEURYSM CLIPPED,RT SHOULDER SURGERY, GANGLION CYST REMOVED RT HAND,CYST AND NODULE REMOVED RT BREAST, Past Anesthesia/Blood Transfusion Reactions: Previous Problems w/ Anesthesia, Motion Sickness Additional Past Anesthesia/Blood Transfusion Reaction / Comm: STATES FELT "SEVERE PAIN" WITH PREVIOUS COLONOSCOPY, WITH PREV. GENERAL ANESTHESIA STATES SHE HAD HALLUCINATIONS Past Psychological History: No Psychological Hx Reported Smoking Status: Former smoker Past Alcohol Use History: Rare Additional Past Alcohol Use History / Comment(s): QUIT SMOKING SMOKED [employer]Y 10 YRS Past Drug Use History: None Reported - Past Family History Mother Additional Family Medical History / Comment(s): PRECANCEROUS BREAST CELLS- MASTECTOMY Father Family Medical History: Myocardial Infarction ([place]) Medications and Allergies Home Medications Medication Instructions Recorded Confirmed Type Allopurinol 200 mg PO DAILY 01/13/15 08/31/19 History Levothyroxine Sodium [Synthroid] 25 mcg PO DAILY 01/13/15 08/31/19 History Lisinopril 10 mg PO DAILY 01/13/15 08/31/19 History Atorvastatin [Lipitor] 40 mg PO DAILY 01/25/15 08/31/19 History Pioglitazone [Actos] 15 mg PO DAILY 08/29/18 08/31/19 History Aspirin EC [Ecotrin Low Dose] 81 mg PO DAILY 09/20/18 08/31/19 History Cyanocobalamin (Vitamin B-12) 1,000 mcg PO DAILY 08/31/19 08/31/19 History [Vitamin B-12] Donepezil [Aricept] 10 mg PO HS 08/31/19 08/31/19 History Sertraline [Zoloft] 25 mg PO DAILY 08/31/19 08/31/19 History metFORMIN HCL ER [Glucophage Xr] 500 mg PO BID 08/31/19 08/31/19 History risperiDONE 0.25 mg PO TID 08/31/19 08/31/19 History Allergies Allergy/AdvReac Type Severity Reaction Status Date / Time No Known Allergies Allergy Verified 08/31/19 19:34 Physical Exam Vitals: Vital Signs Temp Pulse Pulse Resp BP BP Pulse Ox 09/01/19 15:05 100 18 09/01/19 11:59 97.5 F L 100 18 134/75 99 09/01/19 07:50 98 20 09/01/19 05:07 97.4 F L 95 20 150/63 09/01/19 04:13 97.9 F 98 20 136/76 100 09/01/19 04:02 91 16 100 09/01/19 03:00 98 F 94 16 105/57 09/01/19 02:55 98.1 F 92 16 133/64 100 09/01/19 02:45 98.0 F 90 16 117/57 100 09/01/19 02:36 117/57 09/01/19 02:25 98.1 F 90 16 109/42 100 09/01/19 01:30 98.0 F 87 16 117/63 09/01/19 01:15 98.2 F 93 16 126/47 100 09/01/19 01:00 98.0 F 93 16 109/42 100 09/01/19 00:45 98.2 F 97 16 125/41 100 09/01/19 00:30 98.2 F 98 18 117/33 01/27/20 23:40 98.1 F 98 18 127/50 100 08/31/19 22:42 100 18 131/61 98 08/31/19 21:22 98.2 F 104 H 16 126/60 97 08/31/19 18:01 98 F 98 16 118/45 98 Intake and Output 09/01/19 09/01/19 09/01/19 06:59 14:59 22:59 Intake Total 620 800 Balance 620 800 Intake: IV 800 0.9 NS 100 cc/hr 800 Blood Product 620 Rc As-1 Unit 310 [id number] Rc Pheresis As-3 Unit 310 [id number] Other: Voiding Method Toilet # Voids 1 Weight 97.522 kg - Constitutional General appearance: cooperative, no acute distress, obese - EENT Eyes: anicteric sclerae, EOMI ENT: hearing grossly normal, normal oropharynx - Neck Neck: no lymphadenopathy - Respiratory Respiratory: bilateral: CTA - Cardiovascular Rhythm: regular Heart sounds: normal: S1, S2 Abnormal Heart Sounds: no systolic murmur, no diastolic murmur, no rub, no S3 Gallop, no S4 Gallop, no click, no other leg Peripheral Edema: bilateral: None - Gastrointestinal General gastrointestinal: no absent bowel sounds, no decreased bowel sounds, no distended, no hepatomegaly, no hyperactive bowel sounds, normal bowel sounds, no organomegaly, no rigid, no scaphoid, soft, no splenomegaly, no tenderness, no umbilical hernia, no ventral hernia - Integumentary Integumentary: normal turgor, pale - Neurologic Neurologic: CNII-XII intact - Musculoskeletal Musculoskeletal: generalized weakness - Psychiatric Psychiatric: A&O x's 3, appropriate affect Results CBC & Chem 7: 09/01/19 14:11 08/31/19 20:40 Labs: Abnormal Lab Results - Last 24 Hours (Table) 08/31/19 08/31/19 08/31/19 Range/Units 20:40 20:40 20:40 RBC 2.78 L (3.80-5.40) m/uL Hgb 4.6 L* (11.4-16.0) gm/dL Hct 19.3 L* (34.0-46.0) % MCV 69.5 L (80.0-100.0) fL MCH 16.7 L (25.0-35.0) pg MCHC 24.0 L (31.0-37.0) g/dL RDW 17.8 H (11.5-15.5) % APTT (22.0-30.0) sec Chloride 113 H (98-107) mmol/L BUN 30 H (7-17) mg/dL Creatinine 1.58 H (0.52-1.04) mg/dL Glucose 107 H (74-99) mg/dL POC Glucose (mg/dL) (75-99) mg/dL Crossmatch See Detail 08/31/19 09/01/19 09/01/19 Range/Units 20:40 06:25 08:10 RBC 3.38 L (3.80-5.40) m/uL Hgb 6.8 L* D (11.4-16.0) gm/dL Hct 25.0 L (34.0-46.0) % MCV 74.0 L (80.0-100.0) fL MCH 20.2 L (25.0-35.0) pg MCHC 27.4 L (31.0-37.0) g/dL RDW 19.3 H (11.5-15.5) % APTT 21.2 L (22.0-30.0) sec Chloride (98-107) mmol/L BUN (7-17) mg/dL Creatinine (0.52-1.04) mg/dL Glucose (74-99) mg/dL POC Glucose (mg/dL) 110 H (75-99) mg/dL Crossmatch 09/01/19 09/01/19 Range/Units 11:59 14:11 RBC 3.29 L (3.80-5.40) m/uL Hgb 7.0 L (11.4-16.0) gm/dL Hct 24.1 L (34.0-46.0) % MCV 73.5 L (80.0-100.0) fL MCH 21.2 L (25.0-35.0) pg MCHC 28.9 L (31.0-37.0) g/dL RDW 20.1 H (11.5-15.5) % APTT (22.0-30.0) sec Chloride (98-107) mmol/L BUN (7-17) mg/dL Creatinine (0.52-1.04) mg/dL Glucose (74-99) mg/dL POC Glucose (mg/dL) 133 H (75-99) mg/dL Crossmatch Chest x-ray: report reviewed Assessment and Plan (1) Microcytic hypochromic anemia Narrative/Plan: Anemia work up ordered GI plan for endo in AM Transfuse for to get Hgb into safe range 7 or higher Suspect iron deficiency, CKD and malabsorption are all contributing to anemia. Pending work up, further recommendations to follow Current Visit: Yes Status: Acute Priority: High Code(s): D50.9 - IRON DEFICIENCY ANEMIA, UNSPECIFIED SNOMED Code(s): 77559959
[2019-09-01] MEDS: SERTRALINE 25 MG TAB PO SCH (16:32)
[2019-09-01] MEDS: risperiDONE 0.25 MG TAB PO SCH ×2 (16:32→21:34)
[2019-09-01 16:59] LABS: Glucose,Whole Blood 179 mg/dL (75-99)
[2019-09-01 18:21] LABS: Ferritin 5.1 ng/mL (10.0-291.0)
[2019-09-01 19:08] LABS: % Iron Saturation 3.72 (12.00-45.00)
[2019-09-01] MEDS: DONEPEZIL 10 MG TAB PO SCH (21:34)
[2019-09-01] MEDS: PANTOPRAZOLE 40 MG/10 ML VIAL IVP SCH (21:34)
--- NOTE | 2019-09-01 21:37 | P.CONS ---
History of Present Illness - Reason for Consult Consult date: 09/01/19 Anemia Requesting physician: Gerber Coronel - Chief Complaint Abnormal outpatient labs - History of Present Illness 74-year-old female with multiple medical comorbidities including dementia, diabetes mellitus type 2, hypertension and hyperlipidemia as well as prior hospitalization for anemia presented to the hospital due to abnormal labs and outpatient setting. The patient had been reporting increasing shortness of breath worse with exertion over the past few months and outpatient laboratory evaluation have been significant for anemia. The patient presented to the hospital for further evaluation. Denies any signs or symptoms of GI bleeding. She is not on any blood thinners at home but does report use of NSAID therapy regularly with Excedrin use, 2 tabs daily or every other day. She did see some black tarry stools approximately one month ago but denies any recent dark bowel movements or change in bowel habits. No abdominal pain, nausea, vomiting, GERD or prior history of peptic ulcer disease. Previously patient was evaluated with EGD and colonoscopy in 08/2018 with findings of colonic polyps, gastritis. Diverticulosis. On presentation hemoglobin was found to be 4.6 currently 6.8F transfusion, WBC 8.9, platelet count 374,000, INR 1, total bilirubin 0.3, alkaline phosphatase 79, AST 20 and ALT 12. Stool testing was negative for occult blood. Review of Systems REVIEW OF SYSTEMS: CONSTITUTIONAL: Denies any fevers, chills, weight change the patient had been reporting some fatigue.. CARDIOVASCULAR: Denies any chest pain, palpitations high or low blood pressures. RESPIRATORY: Denies any hemoptysis or cough, but patient had been experiencing some shortness of breath, worse on his. GENITOURINARY: No dysuria or hematuria. MUSCULOSKELETAL: No weakness reported. SKIN: Denies any new rashes or lesions, jaundice or pallor. PSYCHIATRIC: Denies any depression or anxiety, the patient does have a known history of memory impairment. NEUROLOGY: Denies headache, denies any new focal deficits. EARS/NOSE/THROAT: No recent hearing change, congestion, nasal discharge or sore throat. EYES: No pain in eyes, discharge or change in vision. GASTROINTESTINAL: As per HPI. Past Medical History Past Medical History: CVA/TIA, Diabetes Mellitus, Hyperlipidemia, Hypertension, Osteoarthritis (OA), Skin Disorder Additional Past Medical History / Comment(s): STATES IS ANEMIC, HX BRAIN ANEURYSM, PSORIASIS, GOUT History of Any Multi-Drug Resistant Organisms: None Reported, MRSA Year Discovered:: SUMMER 2013 MDRO Source:: CHEST,BREAST,STOMACH Past Surgical History: Appendectomy, Hysterectomy, Orthopedic Surgery Additional Past Surgical History / Comment(s): BRAIN ANEURYSM CLIPPED,RT SHOULDER SURGERY, GANGLION CYST REMOVED RT HAND,CYST AND NODULE REMOVED RT BREAST, Past Anesthesia/Blood Transfusion Reactions: Previous Problems w/ Anesthesia, Motion Sickness Additional Past Anesthesia/Blood Transfusion Reaction / Comm: STATES FELT "SEVERE PAIN" WITH PREVIOUS COLONOSCOPY, WITH PREV. GENERAL ANESTHESIA STATES SHE HAD HALLUCINATIONS Past Psychological History: No Psychological Hx Reported Smoking Status: Former smoker Past Alcohol Use History: Rare Additional Past Alcohol Use History / Comment(s): QUIT SMOKING SMOKED APPROX 10 YRS Past Drug Use History: None Reported - Past Family History Mother Additional Family Medical History / Comment(s): PRECANCEROUS BREAST CELLS- MASTECTOMY Father Family Medical History: Myocardial Infarction ([place]) Medications and Allergies Home Medications Medication Instructions Recorded Confirmed Type Allopurinol 200 mg PO DAILY 01/13/15 08/31/19 History Levothyroxine Sodium [Synthroid] 25 mcg PO DAILY 01/13/15 08/31/19 History Lisinopril 10 mg PO DAILY 01/13/15 08/31/19 History Atorvastatin [Lipitor] 40 mg PO DAILY 01/25/15 08/31/19 History Pioglitazone [Actos] 15 mg PO DAILY 08/29/18 08/31/19 History Aspirin EC [Ecotrin Low Dose] 81 mg PO DAILY 09/20/18 08/31/19 History Cyanocobalamin (Vitamin B-12) 1,000 mcg PO DAILY 08/31/19 08/31/19 History [Vitamin B-12] Donepezil [Aricept] 10 mg PO HS 08/31/19 08/31/19 History Sertraline [Zoloft] 25 mg PO DAILY 08/31/19 08/31/19 History metFORMIN HCL ER [Glucophage Xr] 500 mg PO BID 08/31/19 08/31/19 History risperiDONE 0.25 mg PO TID 08/31/19 08/31/19 History Allergies Allergy/AdvReac Type Severity Reaction Status Date / Time No Known Allergies Allergy Verified 08/31/19 19:34 Physical Exam Vitals: Vital Signs Temp Pulse Pulse Resp BP BP Pulse Ox 09/01/19 07:50 98 20 09/01/19 05:07 97.4 F L 95 20 150/63 09/01/19 04:13 97.9 F 98 20 136/76 100 09/01/19 04:02 91 16 100 09/01/19 03:00 98 F 94 16 105/57 09/01/19 02:55 98.1 F 92 16 133/64 100 09/01/19 02:45 98.0 F 90 16 117/57 100 09/01/19 02:36 117/57 09/01/19 02:25 98.1 F 90 16 109/42 100 09/01/19 01:30 98.0 F 87 16 117/63 09/01/19 01:15 98.2 F 93 16 126/47 100 09/01/19 01:00 98.0 F 93 16 109/42 100 09/01/19 00:45 98.2 F 97 16 125/41 100 09/01/19 00:30 98.2 F 98 18 117/33 08/31/19 23:40 98.1 F 98 18 127/50 100 08/31/19 22:42 100 18 131/61 98 08/31/19 21:22 98.2 F 104 H 16 126/60 97 08/31/19 18:01 98 F 98 16 118/45 98 Intake and Output 08/31/19 09/01/19 09/01/19 22:59 06:59 14:59 Intake Total 620 800 Balance 620 800 Intake: IV 800 0.9 NS 100 cc/hr 800 Blood Product 620 As-1 Unit 310 [id number] Pheresis As-3 Unit 310 [id number] Other: Voiding Method Toilet # Voids 1 Weight 97.522 kg 97.522 kg On physical examination, patient appears comfortable in no apparent distress. HEAD: Normocephalic, atraumatic. EYES: No scleral icterus. No conjunctival injection. MOUTH: No lesions, tongue midline. NECK: Trachea midline, no gross abnormalities. CHEST: Decreased air entry in all lung wynn. HEART: S1-S2 appreciated. ABDOMEN: Soft, obese. Bowel sounds are positive. No organomegaly. No guarding or rigidity. EXTREMITIES: No pedal edema. SKIN: No rashes, no jaundice. NEUROLOGIC: Alert and oriented to person and place. No focal deficits. Results CBC & Chem 7: 09/01/19 14:11 08/31/19 20:40 Labs: Abnormal Lab Results - Last 24 Hours (Table) 08/31/19 08/31/19 08/31/19 Range/Units 20:40 20:40 20:40 RBC 2.78 L (3.80-5.40) m/uL Hgb 4.6 L* (11.4-16.0) gm/dL Hct 19.3 L* (34.0-46.0) % MCV 69.5 L (80.0-100.0) fL MCH 16.7 L (25.0-35.0) pg MCHC 24.0 L (31.0-37.0) g/dL RDW 17.8 H (11.5-15.5) % APTT (22.0-30.0) sec Chloride 113 H (98-107) mmol/L BUN 30 H (7-17) mg/dL Creatinine 1.58 H (0.52-1.04) mg/dL Glucose 107 H (74-99) mg/dL POC Glucose (mg/dL) (75-99) mg/dL Crossmatch See Detail 08/31/19 09/01/19 09/01/19 Range/Units 20:40 06:25 08:10 RBC 3.38 L (3.80-5.40) m/uL Hgb 6.8 L* D (11.4-16.0) gm/dL Hct 25.0 L (34.0-46.0) % MCV 74.0 L (80.0-100.0) fL MCH 20.2 L (25.0-35.0) pg MCHC 27.4 L (31.0-37.0) g/dL RDW 19.3 H (11.5-15.5) % APTT 21.2 L (22.0-30.0) sec Chloride (98-107) mmol/L BUN (7-17) mg/dL Creatinine (0.52-1.04) mg/dL Glucose (74-99) mg/dL POC Glucose (mg/dL) 110 H (75-99) mg/dL Crossmatch 09/01/19 Range/Units 11:59 RBC (3.80-5.40) m/uL Hgb (11.4-16.0) gm/dL Hct (34.0-46.0) % MCV (80.0-100.0) fL MCH (25.0-35.0) pg MCHC (31.0-37.0) g/dL RDW (11.5-15.5) % APTT (22.0-30.0) sec Chloride (98-107) mmol/L BUN (7-17) mg/dL Creatinine (0.52-1.04) mg/dL Glucose (74-99) mg/dL POC Glucose (mg/dL) 133 H (75-99) mg/dL Crossmatch Chest x-ray: report reviewed (Chest x-ray essentially normal with hiatal hernia seen.) Assessment and Plan (1) Microcytic hypochromic anemia Narrative/Plan: 74-year-old female with multiple medical comorbidities who presented due to abnormal patient lives with anemia. Patient has a severe microcytic, hypo chromic symptomatic anemia. Stool testing was negative for blood and patient denies any current signs or symptoms of GI bleeding. There was questionable melena proximally 1 month ago. She also reports use of NSAID therapy daily to every other day with Excedrin 2 tabs. Previous evaluation in 08/2018 with EGD and colonoscopy were negative for a source of bleeding when patient was also found to be anemic. Previously she had been on iron therapy but was unable to tolerate this. Unknown etiology of anemia with differential including GI bleed with suspicion for possible peptic ulcer disease in the setting of NSAID therapy, hematopoietic process or other etiology. Current Visit: Yes Status: Acute Priority: High Code(s): D50.9 - IRON DEFICIENCY ANEMIA, UNSPECIFIED SNOMED Code(s): 64889846 (2) Symptomatic anemia Current Visit: No Status: Acute Code(s): D64.9 - ANEMIA, UNSPECIFIED SNOMED Code(s): 537693560 Plan: Supportive care Clear liquid diet Nothing by mouth after midnight Plan for EGD and colonoscopy tomorrow for further evaluation Consideration for small bowel endoscopy if no source of bleeding is found Protonix 40 mg twice daily added Continue to monitor hemoglobin and hematocrit and transfuse as needed Avoid NSAID therapy Thank you for allowing us to participate in the care of the patient we will continue to follow
[2019-09-02] MEDS: LEVOTHYROXINE 25 MCG TAB PO SCH (06:24)
[2019-09-02 06:31] LABS: Glucose,Whole Blood 157 mg/dL (75-99)
--- NOTE | 2019-09-02 08:21 | P.HPIM ---
History of Present Illness H&P Date: 09/01/19 Chief Complaint: anemia Eva Dumont is a 74-year-old female with past medical history of dementia, type 2 diabetes, hypertension, hyperlipidemia who presented to the emergency department at the request of her primary care physician after outpatient CBC noted her to be anemic. Patient states she did have an episode approximately one year ago where she was found to have same and had an EGD and colonoscopy at that time noting polyps and gastritis. She complains of increasing dyspnea with exertion over the past few months. She denies chest pain, or shortness of br eath with rest. She denies hematochezia, melena, denies blood thinners. She denies alcohol use. On presentation, her vitals were stable, hemoglobin initially 4.6, creatinine 1.58, ferritin 5.8. FOBT negative. Patient was transfused 2 units PRBC with rise in hemoglobin to 7.0. Review of Systems All systems: negative Constitutional: Reports malaise, Reports weakness, Denies chills, Denies fever Eyes: denies blurred vision, denies pain Ears, nose, mouth and throat: Denies headache, Denies sore throat Cardiovascular: Denies chest pain, Denies shortness of breath Respiratory: Reports dyspnea, Denies cough Gastrointestinal: Denies abdominal pain, Denies BRBPR, Denies change in bowel habits, Denies coffee ground emesis, Denies diarrhea, Denies nausea, Denies vomiting Genitourinary: Denies dysuria, Denies hematuria Musculoskeletal: Denies myalgias Integumentary: Denies pruritus, Denies rash Neurological: Denies numbness, Denies weakness Psychiatric: Denies anxiety, Denies depression Endocrine: Denies fatigue, Denies weight change Past Medical History Past Medical History: CVA/TIA, Diabetes Mellitus, Hyperlipidemia, Hypertension, Osteoarthritis (OA), Skin Disorder Additional Past Medical History / Comment(s): STATES IS ANEMIC, HX BRAIN ANEURYSM, PSORIASIS, GOUT History of Any Multi-Drug Resistant Organisms: None Reported, MRSA Date of last positivie culture/infection: SUMMER 2013 MDRO Source:: CHEST,BREAST,STOMACH Past Surgical History: Appendectomy, Hysterectomy, Orthopedic Surgery Additional Past Surgical History / Comment(s): BRAIN ANEURYSM CLIPPED,RT SHOULDER SURGERY, GANGLION CYST REMOVED RT HAND,CYST AND NODULE REMOVED RT BREAST, Past Anesthesia/Blood Transfusion Reactions: Previous Problems w/ Anesthesia, Motion Sickness Additional Past Anesthesia/Blood Transfusion Reaction / Comment(s): STATES FELT "SEVERE PAIN" WITH PREVIOUS COLONOSCOPY, WITH PREV. GENERAL ANESTHESIA STATES SHE HAD HALLUCINATIONS Past Psychological History: No Psychological Hx Reported Smoking Status: Former smoker Past Alcohol Use History: Rare Additional Past Alcohol Use History / Comment(s): QUIT SMOKING SMOKED APPROX 10 YRS Past Drug Use History: None Reported - Past Family History Mother Additional Family Medical History / Comment(s): PRECANCEROUS BREAST CELLS- MASTECTOMY Father Family Medical History: Myocardial Infarction ([place]) Medications and Allergies Home Medications Medication Instructions Recorded Confirmed Type Allopurinol 200 mg PO DAILY 01/13/15 08/31/19 History Levothyroxine Sodium [Synthroid] 25 mcg PO DAILY 01/13/15 08/31/19 History Lisinopril 10 mg PO DAILY 01/13/15 08/31/19 History Atorvastatin [Lipitor] 40 mg PO DAILY 01/25/15 08/31/19 History Pioglitazone [Actos] 15 mg PO DAILY 08/29/18 08/31/19 History Aspirin EC [Ecotrin Low Dose] 81 mg PO DAILY 09/20/18 08/31/19 History Cyanocobalamin (Vitamin B-12) 1,000 mcg PO DAILY 08/31/19 08/31/19 History [Vitamin B-12] Donepezil [Aricept] 10 mg PO HS 08/31/19 08/31/19 History Sertraline [Zoloft] 25 mg PO DAILY 08/31/19 08/31/19 History metFORMIN HCL ER [Glucophage Xr] 500 mg PO BID 08/31/19 08/31/19 History risperiDONE 0.25 mg PO TID 08/31/19 08/31/19 History Allergies Allergy/AdvReac Type Severity Reaction Status Date / Time No Known Allergies Allergy Verified 08/31/19 19:34 Physical Exam Vitals: Vital Signs Temp Pulse Resp BP Pulse Ox 09/02/19 07:21 95 09/02/19 04:45 98.4 F 105 H 22 124/75 92 L 09/01/19 20:10 98.3 F 95 20 153/78 95 09/01/19 15:05 100 18 09/01/19 11:59 97.5 F L 100 18 134/75 99 Intake and Output 09/01/19 09/02/19 09/02/19 22:59 06:59 14:59 Intake Total 200 Balance 200 Intake: Oral 200 Other: Voiding Method Toilet # Voids 1 4 # Bowel Movements 1 0 Gen.: Well-developed, well-nourished white female in no acute distress HEENT: Normocephalic, atraumatic, mucous membranes moist Neck: Supple, no JVD, no thyromegaly CV: Regular rate and rhythm, no murmurs Lungs: Normal inspiratory effort, no wheezes, no rales Abdomen: Soft, nontender, nondistended, no organomegaly Lymph: No cervical or axillary lymphadenopathy Neuro: Alert and oriented 3, no focal deficits Skin: Warm and dry Results CBC & Chem 7: 09/01/19 14:11 08/31/19 20:40 Labs: Abnormal Lab Results - Last 24 Hours (Table) 09/01/19 09/01/19 09/01/19 Range/Units 08:10 10:19 11:59 RBC 3.38 L (3.80-5.40) m/uL Hgb 6.8 L* D (11.4-16.0) gm/dL Hct 25.0 L (34.0-46.0) % MCV 74.0 L (80.0-100.0) fL MCH 20.2 L (25.0-35.0) pg MCHC 27.4 L (31.0-37.0) g/dL RDW 19.3 H (11.5-15.5) % POC Glucose (mg/dL) 133 H (75-99) mg/dL Iron 14 L (50-170) ug/dL % Saturation 3.72 L (12.00-45.00) Ferritin 5.1 L (10.0-291.0) ng/mL Vitamin B12 1119.0 H (200.0-944.0) pg/mL 09/01/19 09/01/19 09/02/19 Range/Units 14:11 16:56 06:29 RBC 3.29 L (3.80-5.40) m/uL Hgb 7.0 L (11.4-16.0) gm/dL Hct 24.1 L (34.0-46.0) % MCV 73.5 L (80.0-100.0) fL MCH 21.2 L (25.0-35.0) pg MCHC 28.9 L (31.0-37.0) g/dL RDW 20.1 H (11.5-15.5) % POC Glucose (mg/dL) 179 H 157 H (75-99) mg/dL Iron (50-170) ug/dL % Saturation (12.00-45.00) Ferritin (10.0-291.0) ng/mL Vitamin B12 (200.0-944.0) pg/mL Thrombosis Risk Factor Assmnt - Choose All That Apply Any of the Below Risk Factors Present?: Yes Each Factor Represents 1 point: Obesity (BMI >25) Other Risk Factors: Yes Each Risk Factor Represents 3 Points: Age 75 years or older Other congenital or acquired thrombophilia - If yes, enter type in comment: No Thrombosis Risk Factor Assessment Total Risk Factor Score: 4 Thrombosis Risk Factor Assessment Level: Moderate Risk Assessment and Plan (1) Microcytic hypochromic anemia Current Visit: Yes Status: Acute Priority: High Code(s): D50.9 - IRON DEFICIENCY ANEMIA, UNSPECIFIED SNOMED Code(s): 38633685 (2) Acute blood loss anemia Current Visit: No Status: Acute Code(s): D62 - ACUTE POSTHEMORRHAGIC ANEMIA SNOMED Code(s): 110497287 (3) Acute kidney injury Current Visit: No Status: Acute Code(s): N17.9 - ACUTE KIDNEY FAILURE, UNSPECIFIED SNOMED Code(s): 05383831 (4) BMI 40.0-44.9, adult Current Visit: No Status: Acute Code(s): Z68.41 - BODY MASS INDEX (BMI) 40.0-44.9, ADULT SNOMED Code(s): 943883448 (5) Diabetes type 2, controlled Current Visit: No Status: Acute Code(s): E11.9 - TYPE 2 DIABETES MELLITUS WITHOUT COMPLICATIONS SNOMED Code(s): 95350357 (6) History of CVA (cerebrovascular accident) Current Visit: No Status: Acute Code(s): Z86.73 - PRSNL HX OF TIA (TIA), AND CEREB INFRC W/O RESID DEFICITS SNOMED Code(s): 020053052 Plan: 1. Iron deficiency anemia. Secondary to chronic blood loss. GI and hematology consulted. Transfuse to maintain above 7. Plan for EGD and colonoscopy. IV Protonix twice a day 2. Acute kidney injury. IV fluid hydration. Follow labs 3. Recurrent major depression. Continue Zoloft, continue Risperdal. 4. Acquired hypothyroidism. Continue Synthroid 5. Dementia. Continue Aricept. DVT prophylaxis contraindicated with active bleed
[2019-09-02] MEDS: PANTOPRAZOLE 40 MG/10 ML VIAL IVP SCH (09:09)
[2019-09-02] MEDS: risperiDONE 0.25 MG TAB PO SCH ×3 (09:09→21:47)
[2019-09-02] MEDS: SERTRALINE 25 MG TAB PO SCH (09:10)
[2019-09-02 10:24] LABS: Calcium 8.9 mg/dL (8.4-10.2); Potassium 4.6 mmol/L (3.5-5.1)
[2019-09-02 10:33] LABS: Anisocytosis Slight; Basophils % (A) 0 %; Eosinophils # (A) 0.2 k/uL (0-0.7); Eosinophils % (A) 3 %; HCT 26.1 % (34.0-46.0); Hypochromasia Marked; Lymphocytes # (A) 1.4 k/uL (1.0-4.8); Lymphocytes % (A) 19 %; MCHC 26.9 g/dL (31.0-37.0); MCV 74.4 fL (80.0-100.0); Mean Platelet Volume 8.3; Microcytosis Moderate; Monocytes # (A) 0.3 k/uL (0-1.0); Monocytes % (A) 4 %; Neutrophils # (A) 5.7 k/uL (1.3-7.7); Neutrophils % (A) 73 %; Platelet Count 414 k/uL (150-450); Poikilocytosis Marked; RDW 19.5 % (11.5-15.5); WBC 7.7 k/uL (3.8-10.6)
[2019-09-02 11:32] LABS: Glucose,Whole Blood 140 mg/dL (75-99)
[2019-09-02] MEDS: SODIUM FERRIC GLUCONAT-SUCROSE 125 MG in SODIUM CHLORIDE 0.9% 100 ML IVPB SCH (11:36)
--- NOTE | 2019-09-02 12:32 | P.PN ---
Subjective Progress Note Date: 09/02/19 Principal diagnosis: microcytic, hypochromic anemia, iron deficient In f/u today pt has no c/o other then hunger, she is NPO for her EGD. Objective - Vital Signs Vital signs: Vital Signs Temp 98.4 F 09/02/19 04:45 Pulse 105 H 09/02/19 04:45 Resp 18 09/02/19 08:05 BP 124/75 09/02/19 04:45 Pulse Ox 95 09/02/19 07:21 Intake & Output 09/01/19 09/02/19 09/02/19 18:59 06:59 18:59 Intake Total 800 200 Balance 800 200 Intake: IV 800 0.9 NS 100 cc/hr 800 Oral 200 Other: Voiding Method Toilet Toilet # Voids 4 4 # Bowel Movements 1 0 - Constitutional General appearance: Present: cooperative, no acute distress, obese - EENT Eyes: Present: anicteric sclerae, EOMI ENT: Present: hearing grossly normal - Respiratory Details: respirations even and unlabored - Cardiovascular Details: skin warm and dry - Gastrointestinal General gastrointestinal: Present: soft - Integumentary Integumentary: Present: pale - Neurologic Neurologic: Present: CNII-XII intact - Musculoskeletal Musculoskeletal: Present: generalized weakness, strength equal bilaterally - Psychiatric Psychiatric: Present: A&O x's 3, appropriate affect - Labs CBC & Chem 7: 09/02/19 09:39 09/02/19 09:39 Labs: Abnormal Lab Results - Last 24 Hours (Table) 09/01/19 09/01/19 09/01/19 Range/Units 10:19 10:19 14:11 RBC 3.29 L (3.80-5.40) m/uL Hgb 7.0 L (11.4-16.0) gm/dL Hct 24.1 L (34.0-46.0) % MCV 73.5 L (80.0-100.0) fL MCH 21.2 L (25.0-35.0) pg MCHC 28.9 L (31.0-37.0) g/dL RDW 20.1 H (11.5-15.5) % Chloride (98-107) mmol/L Carbon Dioxide (22-30) mmol/L BUN (7-17) mg/dL Creatinine (0.52-1.04) mg/dL Glucose (74-99) mg/dL POC Glucose (mg/dL) (75-99) mg/dL Iron 14 L (50-170) ug/dL % Saturation 3.72 L (12.00-45.00) Ferritin 5.1 L (10.0-291.0) ng/mL Vitamin B12 1119.0 H (200.0-944.0) pg/mL RBC Folate 1,251 H (280 - 791) ng/mL 09/01/19 09/02/19 09/02/19 Range/Units 16:56 06:29 09:39 RBC 3.50 L (3.80-5.40) m/uL Hgb 7.0 L (11.4-16.0) gm/dL Hct 26.1 L (34.0-46.0) % MCV 74.4 L (80.0-100.0) fL MCH 20.0 L (25.0-35.0) pg MCHC 26.9 L (31.0-37.0) g/dL RDW 19.5 H (11.5-15.5) % Chloride (98-107) mmol/L Carbon Dioxide (22-30) mmol/L BUN (7-17) mg/dL Creatinine (0.52-1.04) mg/dL Glucose (74-99) mg/dL POC Glucose (mg/dL) 179 H 157 H (75-99) mg/dL Iron (50-170) ug/dL % Saturation (12.00-45.00) Ferritin (10.0-291.0) ng/mL Vitamin B12 (200.0-944.0) pg/mL RBC Folate (280 - 791) ng/mL 09/02/19 09/02/19 Range/Units 09:39 11:31 RBC (3.80-5.40) m/uL Hgb (11.4-16.0) gm/dL Hct (34.0-46.0) % MCV (80.0-100.0) fL MCH (25.0-35.0) pg MCHC (31.0-37.0) g/dL RDW (11.5-15.5) % Chloride 114 H (98-107) mmol/L Carbon Dioxide 20 L (22-30) mmol/L BUN 18 H (7-17) mg/dL Creatinine 1.11 H (0.52-1.04) mg/dL Glucose 133 H (74-99) mg/dL POC Glucose (mg/dL) 140 H (75-99) mg/dL Iron (50-170) ug/dL % Saturation (12.00-45.00) Ferritin (10.0-291.0) ng/mL Vitamin B12 (200.0-944.0) pg/mL RBC Folate (280 - 791) ng/mL Assessment and Plan (1) Microcytic hypochromic anemia Narrative/Plan: Anemia work up ordered, showing iron deficiency. Iv iron ordered (pt does not tolerate oral) daily x 4 or a least daily while inpatient Agree with GI plan for endo today Transfuse for to get Hgb into safe range 7 or higher Correct iron deficiency 1st then f/u to see if anemia resolves. Further work up based on that. F/U for 1 month in DC Pt and family verbalized understanding Current Visit: Yes Status: Acute Priority: High Code(s): D50.9 - IRON DEFICIENCY ANEMIA, UNSPECIFIED SNOMED Code(s): 94298294
[2019-09-02] MEDS ORDERED: PROPOFOL 10 MG/ML 20 ML VIAL IV ONE (13:11)
[2019-09-02] MEDS ORDERED: IV FLUID CONTINUATION 1,000 ML IV ONE (13:11)
[2019-09-02] MEDS ORDERED: LIDOCAINE 1% INJ 10MG/ML (20 ML MDV) ONE (13:11)
--- NOTE | 2019-09-02 13:35 | P.PCN ---
Date of Procedure: 09/02/19 Description of Procedure: BRIEF HISTORY: 74-year-old female with multiple medical comorbidities who presented due to abnormal patient lives with anemia. Patient has a severe microcytic, hypochromic symptomatic anemia. Stool testing was negative for blood and patient denies any current signs or symptoms of GI bleeding. There was questionable melena proximally 1 month ago. She also reports use of NSAID therapy daily to every other day with Excedrin 2 tabs. Previous evaluation in 08/2018 with EGD and colonoscopy were negative for a source of bleeding when patient was also found to be anemic. Previously she had been on iron therapy but was unable to tolerate this. PROCEDURE PERFORMED: Esophagogastroduodenoscopy with biopsy. PREOPERATIVE DIAGNOSIS: Iron deficiency anemia. ESTIMATED BLOOD LOSS: Minimal. IV sedation per anesthesia. PROCEDURE: After informed consent was obtained, the patient was brought into the endoscopy unit. IV sedation was administered by Anesthesia under continuous monitoring. Initially the Olympus GIF-190 video endoscope was inserted into the mouth. Esophagus intubated without any difficulty. It was gradually advanced into the stomach and duodenum and carefully examined. The bulb and the second part of the duodenum appeared normal, with biopsies taken to rule out celiac sprue. The scope at this time was withdrawn to the stomach, adequately insufflated with air, and upon careful examination, mucosa of the antrum, body, cardia and the fundus appeared normal, with biopsies taken to rule out H. pylori. The scope was then withdrawn into the esophagus. The GE junction was located at 39 cm from the incisors. The esophagus appeared normal. There were no erosions or ulcerations seen and the patient tolerated the procedure well. IMPRESSION: 1. Normal-appearing esophagus, stomach and duodenum. 2. Biopsies of the duodenum, in the antrum and body. RECOMMENDATIONS: The findings of this examination were discussed with the patient and her . Okay to resume diet. Extensive discussion with the patient's with video capsule endoscopy off for, however he does not feel the patient will prep for the procedure and reports interested in medical management of her anemia. Continue iron infusions per the hematology service.
[2019-09-02 16:47] LABS: Glucose,Whole Blood 167 mg/dL (75-99)
[2019-09-02] MEDS: DONEPEZIL 10 MG TAB PO SCH (21:47)
--- NOTE | 2019-09-02 22:36 | P.PN ---
Subjective Progress Note Date: 09/02/19 Eva Dumont is a 74-year-old female with past medical history of dementia, type 2 diabetes, hypertension, hyperlipidemia who presented to the emergency department at the request of her primary care physician after outpatient CBC noted her to be anemic. Patient states she did have an episode approximately one year ago where she was found to have same and had an EGD and colonoscopy at that time noting polyps and gastritis. She complains of increasing dyspnea with exertion over the past few months. She denies chest pain, or shortness of breath with rest. She denies hematochezia, melena, denies blood thinners. She denies alcohol use. On presentation, her vitals were stable, hemoglobin ini tially 4.6, creatinine 1.58, ferritin 5.8. FOBT negative. Patient was transfused 2 units PRBC with rise in hemoglobin to 7.0. 09/02: she denies chest pain or shortness of breath, hgb stable at 7.0 this am. She is scheduled for EGD with GI today. Objective - Vital Signs Vital signs: Vital Signs Temp 98.1 F 09/02/19 15:00 Pulse 93 09/02/19 19:26 Resp 20 09/02/19 19:26 BP 135/71 09/02/19 19:26 Pulse Ox 100 09/02/19 19:26 Intake & Output 09/02/19 09/02/19 09/03/19 06:59 18:59 06:59 Intake Total 200 1180 Balance 200 1180 Intake: IV 100 Oral 200 1080 Other: Voiding Method Toilet # Voids 4 3 # Bowel Movements 0 - Exam General: well nourished, well developed, NAD. Vitals reviewed Lungs: normal respiratory effort, no wheezes or rales CV: Regular rate and rhythm, no murmur. Peripheral pulses 2+ Abdomen: soft, nondistended, no organomegaly Skin: warm and dry - Labs CBC & Chem 7: 09/02/19 09:39 09/02/19 09:39 Labs: Abnormal Lab Results - Last 24 Hours (Table) 09/01/19 09/02/19 09/02/19 Range/Units 10:19 06:29 09:39 RBC 3.50 L (3.80-5.40) m/uL Hgb 7.0 L (11.4-16.0) gm/dL Hct 26.1 L (34.0-46.0) % MCV 74.4 L (80.0-100.0) fL MCH 20.0 L (25.0-35.0) pg MCHC 26.9 L (31.0-37.0) g/dL RDW 19.5 H (11.5-15.5) % Chloride (98-107) mmol/L Carbon Dioxide (22-30) mmol/L BUN (7-17) mg/dL Creatinine (0.52-1.04) mg/dL Glucose (74-99) mg/dL POC Glucose (mg/dL) 157 H (75-99) mg/dL RBC Folate 1,251 H (280 - 791) ng/mL 09/02/19 09/02/19 09/02/19 Range/Units 09:39 11:31 16:46 RBC (3.80-5.40) m/uL Hgb (11.4-16.0) gm/dL Hct (34.0-46.0) % MCV (80.0-100.0) fL MCH (25.0-35.0) pg MCHC (31.0-37.0) g/dL RDW (11.5-15.5) % Chloride 114 H (98-107) mmol/L Carbon Dioxide 20 L (22-30) mmol/L BUN 18 H (7-17) mg/dL Creatinine 1.11 H (0.52-1.04) mg/dL Glucose 133 H (74-99) mg/dL POC Glucose (mg/dL) 140 H 167 H (75-99) mg/dL RBC Folate (280 - 791) ng/mL Assessment and Plan (1) Microcytic hypochromic anemia Current Visit: Yes Status: Acute Priority: High Code(s): D50.9 - IRON DEFICIENCY ANEMIA, UNSPECIFIED SNOMED Code(s): 56890671 (2) Acute blood loss anemia Current Visit: No Status: Acute Code(s): D62 - ACUTE POSTHEMORRHAGIC ANEMIA SNOMED Code(s): 879562588 (3) Acute kidney injury Current Visit: No Status: Acute Code(s): N17.9 - ACUTE KIDNEY FAILURE, UNSPECIFIED SNOMED Code(s): 10077257 (4) BMI 40.0-44.9, adult Current Visit: No Status: Acute Code(s): Z68.41 - BODY MASS INDEX (BMI) 40.0-44.9, ADULT SNOMED Code(s): 723450673 (5) Diabetes type 2, controlled Current Visit: No Status: Acute Code(s): E11.9 - TYPE 2 DIABETES MELLITUS WITHOUT COMPLICATIONS SNOMED Code(s): 46973410 (6) History of CVA (cerebrovascular accident) Current Visit: No Status: Acute Code(s): Z86.73 - PRSNL HX OF TIA (TIA), AND CEREB INFRC W/O RESID DEFICITS SNOMED Code(s): 393430832 Plan: 1. Iron deficiency anemia. Secondary to chronic blood loss. GI and hematology following, await EGD. IV iron per hematology. IV Protonix 2. Acute kidney injury, resolved. Continue maintenance IVF. Follow labs 3. Recurrent major depression. Continue Zoloft, continue Risperdal. 4. Acquired hypothyroidism. Continue Synthroid 5. Dementia. Continue Aricept. DVT prophylaxis contraindicated with active bleed
[2019-09-03 00:17] LABS: Glucose,Whole Blood 143 mg/dL (75-99)
[2019-09-03] MEDS: LEVOTHYROXINE 25 MCG TAB PO SCH (06:30)
[2019-09-03 07:11] LABS: Glucose,Whole Blood 225 mg/dL (75-99)
[2019-09-03] MEDS: PANTOPRAZOLE 40 MG TABLET PO SCH (07:19)
[2019-09-03] MEDS: SERTRALINE 25 MG TAB PO SCH (07:19)
[2019-09-03] MEDS: risperiDONE 0.25 MG TAB PO SCH ×3 (07:19→21:20)
[2019-09-03] MEDS: SODIUM FERRIC GLUCONAT-SUCROSE 125 MG in SODIUM CHLORIDE 0.9% 100 ML IVPB SCH (08:46)
[2019-09-03 09:46] LABS: Methylmalonic Acid 0.28 umol/L (<0.40)
[2019-09-03 10:01] LABS: Calcium 9.1 mg/dL (8.4-10.2); Potassium 4.8 mmol/L (3.5-5.1)
[2019-09-03 10:09] LABS: Anisocytosis Slight; Hypochromasia Marked; MCH 20.3 pg (25.0-35.0); MCHC 26.2 g/dL (31.0-37.0); MCV 77.5 fL (80.0-100.0); Mean Platelet Volume 8.7; Microcytosis Moderate; Platelet Count 386 k/uL (150-450); Poikilocytosis Marked; RBC 3.36 m/uL (3.80-5.40); WBC 8.1 k/uL (3.8-10.6)
[2019-09-03 10:14] LABS: HGB 6.8 gm/dL (11.4-16.0)
[2019-09-03 12:17] LABS: Glucose,Whole Blood 138 mg/dL (75-99)
[2019-09-03 16:49] LABS: Glucose,Whole Blood 182 mg/dL (75-99)
[2019-09-03 20:00] VITALS: RESP 22
[2019-09-03] MEDS: DONEPEZIL 10 MG TAB PO SCH (21:21)
[2019-09-04] MEDS: LEVOTHYROXINE 25 MCG TAB PO SCH (05:39)
[2019-09-04 05:41] VITALS: BP 138/71; PULSE 98; TEMP 98.2
[2019-09-04] MEDS: risperiDONE 0.25 MG TAB PO SCH (07:45)
[2019-09-04] MEDS: PANTOPRAZOLE 40 MG TABLET PO SCH (07:45)
[2019-09-04] MEDS: SERTRALINE 25 MG TAB PO SCH (07:45)
[2019-09-04 08:33] LABS: Anisocytosis Moderate; Basophils % (A) 0 %; Eosinophils # (A) 0.3 k/uL (0-0.7); Eosinophils % (A) 4 %; HGB 7.5 gm/dL (11.4-16.0); Hypochromasia Marked; Lymphocytes # (A) 1.6 k/uL (1.0-4.8); Lymphocytes % (A) 20 %; MCH 20.8 pg (25.0-35.0); MCHC 26.6 g/dL (31.0-37.0); MCV 78.3 fL (80.0-100.0); Mean Platelet Volume 8.4; Microcytosis Moderate; Monocytes # (A) 0.4 k/uL (0-1.0); Monocytes % (A) 5 %; Neutrophils # (A) 5.7 k/uL (1.3-7.7); Neutrophils % (A) 70 %; Platelet Count 376 k/uL (150-450); Poikilocytosis Marked; RBC 3.58 m/uL (3.80-5.40); RDW 20.5 % (11.5-15.5); WBC 8.1 k/uL (3.8-10.6)
--- NOTE | 2019-09-04 08:41 | P.PN ---
Subjective Eva Dumont is a 74-year-old female with past medical history of dementia, type 2 diabetes, hypertension, hyperlipidemia who presented to the emergency department at the request of her primary care physician after outpatient CBC noted her to be anemic. Patient states she did have an episode approximately one year ago where she was found to have same and had an EGD and colonoscopy at that time noting polyps and gastritis. She complains of increasing dyspnea with exertion over the past few months. She denies chest pain, or shortness of breath with rest. She denies hematochezia, melena, denies blood thinners. She denies alcohol use. On presentation, her vitals were stable, hemoglobin initially 4.6, creatinine 1.58, ferritin 5.8. FOBT negative. Patient was transfused 2 units PRBC with rise in hemoglobin to 7.0. 09/02: she denies chest pain or shortness of breath, hgb stable at 7.0 this am. She is scheduled for EGD with GI today. 09/03: Hgb 6.8 today, she will be transfused 1 U PRBC. Feeling weak and slightly confused today. EGD negative for definitive bleed and pt unable to do colonoscopy due to prep. Objective - Vital Signs Vital signs: Vital Signs Temp 98.2 F 09/04/19 05:40 Pulse 98 09/04/19 05:40 Resp 22 09/04/19 05:40 BP 138/71 09/04/19 05:40 Pulse Ox 99 09/04/19 05:40 Intake & Output 09/03/19 09/04/19 09/04/19 18:59 06:59 18:59 Intake Total 850 Output Total 1 1 Balance 849 -1 Intake: Oral 540 Blood Product 310 Rc As-1 Unit 310 [id number] Output: Stool 1 1 Other: Voiding Method Toilet Toilet Toilet # Voids 5 1 # Bowel Movements 2 1 - Exam General: well nourished, well developed, NAD. Vitals reviewed Lungs: normal respiratory effort, no wheezes or rales CV: Regular rate and rhythm, no murmur. Peripheral pulses 2+ Abdomen: soft, nondistended, no organomegaly Skin: warm and dry - Labs CBC & Chem 7: 09/04/19 07:57 09/03/19 09:08 Labs: Abnormal Lab Results - Last 24 Hours (Table) 08/31/19 09/03/19 09/03/19 Range/Units 20:40 09:08 09:08 RBC 3.36 L (3.80-5.40) m/uL Hgb 6.8 L* (11.4-16.0) gm/dL Hct 26.0 L (34.0-46.0) % MCV 77.5 L (80.0-100.0) fL MCH 20.3 L (25.0-35.0) pg MCHC 26.2 L (31.0-37.0) g/dL RDW 20.0 H (11.5-15.5) % Chloride 113 H (98-107) mmol/L Carbon Dioxide 19 L (22-30) mmol/L Creatinine 1.22 H (0.52-1.04) mg/dL Glucose 187 H (74-99) mg/dL POC Glucose (mg/dL) (75-99) mg/dL Crossmatch See Detail 09/03/19 09/03/19 09/04/19 Range/Units 12:11 16:43 07:57 RBC 3.58 L (3.80-5.40) m/uL Hgb 7.5 L (11.4-16.0) gm/dL Hct 28.0 L (34.0-46.0) % MCV 78.3 L (80.0-100.0) fL MCH 20.8 L (25.0-35.0) pg MCHC 26.6 L (31.0-37.0) g/dL RDW 20.5 H (11.5-15.5) % Chloride (98-107) mmol/L Carbon Dioxide (22-30) mmol/L Creatinine (0.52-1.04) mg/dL Glucose (74-99) mg/dL POC Glucose (mg/dL) 138 H 182 H (75-99) mg/dL Crossmatch Assessment and Plan (1) Microcytic hypochromic anemia Current Visit: Yes Status: Acute Priority: High Code(s): D50.9 - IRON DEFICIENCY ANEMIA, UNSPECIFIED SNOMED Code(s): 89932298 (2) Acute blood loss anemia Current Visit: No Status: Acute Code(s): D62 - ACUTE POSTHEMORRHAGIC ANEMIA SNOMED Code(s): 390959257 (3) Acute kidney injury Current Visit: No Status: Acute Code(s): N17.9 - ACUTE KIDNEY FAILURE, UNSPECIFIED SNOMED Code(s): 24283893 (4) BMI 40.0-44.9, adult Current Visit: No Status: Acute Code(s): Z68.41 - BODY MASS INDEX (BMI) 40.0-44.9, ADULT SNOMED Code(s): 063585541 (5) Diabetes type 2, controlled Current Visit: No Status: Acute Code(s): E11.9 - TYPE 2 DIABETES MELLITUS WITHOUT COMPLICATIONS SNOMED Code(s): 42592413 (6) History of CVA (cerebrovascular accident) Current Visit: No Status: Acute Code(s): Z86.73 - PRSNL HX OF TIA (TIA), AND CEREB INFRC W/O RESID DEFICITS SNOMED Code(s): 353784645 Plan: 1. Iron deficiency anemia. Secondary to chronic blood loss. EGD negative per GI. IV iron per hematology. Transfuse 1 additional unit toda. IV Protonix 2. Acute kidney injury, resolved. Continue maintenance IVF. Follow labs 3. Recurrent major depression. Continue Zoloft, continue Risperdal. 4. Acquired hypothyroidism. Continue Synthroid 5. Dementia. Continue Aricept. DVT prophylaxis contraindicated with active bleed
--- NOTE | 2019-09-04 09:26 | P.PN ---
Subjective Progress Note Date: 09/03/19 Principal diagnosis: Microcytic iron deficiency anemia Patient is seen lying in bed and was somewhat confused per her daughter today. No signs or symptoms GI bleeding. Hemoglobin remained stable at 7.0, 7.01 6.8 currently receiving 1 unit of packed red blood cells. Objective - Vital Signs Vital signs: Vital Signs Temp 97.7 F 09/03/19 14:39 Pulse 84 09/03/19 14:39 Resp 14 09/03/19 14:39 BP 124/72 09/03/19 14:39 Pulse Ox 99 09/03/19 14:39 Intake & Output 09/02/19 09/03/19 09/03/19 18:59 06:59 18:59 Intake Total 1180 600 0 Output Total 1 Balance 1180 599 0 Intake: IV 100 Oral 1080 600 Blood Product 0 Rc As-1 Unit 0 [id number] Output: Stool 1 Other: Voiding Method Toilet Toilet # Voids 3 1 2 - Exam On physical examination, patient appears comfortable in no apparent distress. HEAD: Normocephalic, atraumatic. EYES: No scleral icterus. No conjunctival injection. MOUTH: No lesions, tongue midline. NECK: Trachea midline, no gross abnormalities. ABDOMEN: Soft, obese. Bowel sounds are positive. No organomegaly. No guarding or rigidity. EXTREMITIES: No pedal edema. SKIN: No rashes, no jaundice. NEUROLOGIC: Alert and oriented to person. No focal deficits. - Labs CBC & Chem 7: 09/04/19 07:57 09/03/19 09:08 Labs: Abnormal Lab Results - Last 24 Hours (Table) 08/31/19 09/02/19 09/03/19 Range/Units 20:40 16:46 00:15 RBC (3.80-5.40) m/uL Hgb (11.4-16.0) gm/dL Hct (34.0-46.0) % MCV (80.0-100.0) fL MCH (25.0-35.0) pg MCHC (31.0-37.0) g/dL RDW (11.5-15.5) % Chloride (98-107) mmol/L Carbon Dioxide (22-30) mmol/L Creatinine (0.52-1.04) mg/dL Glucose (74-99) mg/dL POC Glucose (mg/dL) 167 H 143 H (75-99) mg/dL Crossmatch See Detail 09/03/19 09/03/19 09/03/19 Range/Units 07:06 09:08 09:08 RBC 3.36 L (3.80-5.40) m/uL Hgb 6.8 L* (11.4-16.0) gm/dL Hct 26.0 L (34.0-46.0) % MCV 77.5 L (80.0-100.0) fL MCH 20.3 L (25.0-35.0) pg MCHC 26.2 L (31.0-37.0) g/dL RDW 20.0 H (11.5-15.5) % Chloride 113 H (98-107) mmol/L Carbon Dioxide 19 L (22-30) mmol/L Creatinine 1.22 H (0.52-1.04) mg/dL Glucose 187 H (74-99) mg/dL POC Glucose (mg/dL) 225 H (75-99) mg/dL Crossmatch 09/03/19 Range/Units 12:11 RBC (3.80-5.40) m/uL Hgb (11.4-16.0) gm/dL Hct (34.0-46.0) % MCV (80.0-100.0) fL MCH (25.0-35.0) pg MCHC (31.0-37.0) g/dL RDW (11.5-15.5) % Chloride (98-107) mmol/L Carbon Dioxide (22-30) mmol/L Creatinine (0.52-1.04) mg/dL Glucose (74-99) mg/dL POC Glucose (mg/dL) 138 H (75-99) mg/dL Crossmatch Assessment and Plan (1) Microcytic hypochromic anemia Narrative/Plan: 74-year-old female with multiple medical comorbidities who presented due to abnormal patient lives with anemia. Patient has a severe microcytic, hypochromic symptomatic anemia. Stool testing was negative for blood and patient denies any current signs or symptoms of GI bleeding. There was questionable melena proximally 1 month ago. She also reports use of NSAID therapy daily to every other day with Excedrin 2 tabs. Previous evaluation in 08/2018 with EGD and colonoscopy were negative for a source of bleeding when patient was also found to be anemic. Previously she had been on iron therapy but was unable to tolerate this. Unknown etiology of anemia with patient taken for EGD which was essentially normal. No source of bleeding found, may be related to small bowel bleed. The patient and her family were offered colonoscopy for further evaluation but declined as they did not feel the patient will be able to do the prep. Current Visit: Yes Status: Acute Priority: High Code(s): D50.9 - IRON DEFICIENCY ANEMIA, UNSPECIFIED SNOMED Code(s): 85211534 (2) Symptomatic anemia Current Visit: No Status: Acute Code(s): D64.9 - ANEMIA, UNSPECIFIED S NOMED Code(s): 654040444 Plan: Supportive care Okay for diet, EGD performed with no source of bleeding found Patient refused to prep for colonoscopy, after which extensive conversation with the patient's family would like to offer more conservative treatment at this time is a do not feel the patient is a good candidate for colonoscopy Continue iron supplementation Continue to monitor hemoglobin and hematocrit and transfuse as needed Avoid NSAID therapy Thank you for allowing us to participate in the care of the patient, the GI service will stand by, please call us back any questions or concerns
[2019-09-04] MEDS: SODIUM FERRIC GLUCONAT-SUCROSE 125 MG in SODIUM CHLORIDE 0.9% 100 ML IVPB SCH (10:19)
--- NOTE | 2019-09-04 17:33 | P.DS ---
Providers Date of admission: 08/31/19 23:40 Expected date of discharge: 09/04/19 Attending physician: Gerber Coronel MD Consults: 09/01/19 01:09 Consult Physician Urgent Consulting Provider: Bro Brandon Consult Reason/Comments: severe symptomatic anemia Do you want consulting provider notified?: Yes, Notify in am Primary care physician: Shannon Middleton Hospital Course: Final diagnoses (1) Microcytic hypochromic anemia, iron deficient secondary to chronic blood loss. EGD negative per GI. Current Visit: Yes Status: Acute Priority: High Code(s): D50.9 - IRON DEFICIENCY ANEMIA, UNSPECIFIED SNOMED Code(s): 57072698 (2) Acute blood loss anemia, status post transfusion packed RBCs Current Visit: No Status: Acute Code(s): D62 - ACUTE POSTHEMORRHAGIC ANEMIA SNOMED Code(s): 844086472 (3) Acute kidney injury, resolved Current Visit: No Status: Acute Code(s): N17.9 - ACUTE KIDNEY FAILURE, UNSPECIFIED SNOMED Code(s): 93422989 (4) BMI 40.0-44.9, adult Current Visit: No Status: Acute Code(s): Z68.41 - BODY MASS INDEX (BMI) 40.0-44.9, ADULT SNOMED Code(s): 897900073 (5) Diabetes type 2, controlled Current Visit: No Status: Acute Code(s): E11.9 - TYPE 2 DIABETES MELLITUS WITHOUT COMPLICATIONS SNOMED Code(s): 70378681 (6) History of CVA (cerebrovascular accident) Current Visit: No Status: Acute Code(s): Z86.73 - PRSNL HX OF TIA (TIA), AND CEREB INFRC W/O RESID DEFICITS SNOMED Code(s): 888218476 7) depression. (8) dementia Hospital course: Eva Dumont is a 74-year-old female with past medical history of dementia, type 2 diabetes, hypertension, hyperlipidemia who presented to the emergency department at the request of her primary care physician after outpatient CBC noted her to be anemic. Patient states she did have an episode approximately one year ago where she was found to have same and had an EGD and colonoscopy at that time noting polyps and gastritis. She complains of increasing dyspnea with exertion over the past few months. She denies chest pain, or shortness of breath with rest. She denies hematochezia, melena, denies blood thinners. She denies alcohol use. On presentation, her vitals were stable, hemoglobin initially 4.6, creatinine 1.58, ferritin 5.8. FOBT negative. Patient was transfused 2 units PRBC with rise in hemoglobin to 7.0. 09/02: she denies chest pain or shortness of breath, hgb stable at 7.0 this am. She is scheduled for EGD with GI today. 09/03: Hgb 6.8 today, she will be transfused 1 U PRBC. Feeling weak and slightly confused today. EGD negative for definitive bleed and pt unable to do colonoscopy due to prep. IV iron per hematology. Significant clinical improvement. Cleared by all consults for discharge. Midline to be placed for outpatient IV iron therapy at the [facility]. Patient is being discharged home in a stable condition with guarded prognosis with family. - Exam General: well nourished, well developed, NAD. Vitals reviewed Lungs: normal respiratory effort, no wheezes or rales CV: Regular rate and rhythm, no murmur. Peripheral pulses 2+ Abdomen: soft, nondistended, no organomegaly Skin: warm and dry The impression and plan of care has been dictated as directed. : I performed a history and examination of this patient, discussed the same with the dictator. I agree with the dictator's note ,documented as a scribe. Any additional findings or plans will be noted. Patient Condition at Discharge: Stable Plan - Discharge Summary Discharge Rx Participant: No New Discharge Prescriptions: New Pantoprazole [Protonix] 40 mg PO [facility] tablet. Continue Lisinopril 10 mg PO DAILY Levothyroxine Sodium [Synthroid] 25 mcg PO DAILY Allopurinol 200 mg PO DAILY Atorvastatin [Lipitor] 40 mg PO DAILY Pioglitazone [Actos] 15 mg PO DAILY risperiDONE 0.25 mg PO TID Sertraline [Zoloft] 25 mg PO DAILY metFORMIN HCL ER [Glucophage Xr] 500 mg PO BID Donepezil [Aricept] 10 mg PO HS Cyanocobalamin (Vitamin B-12) [Vitamin B-12] 1,000 mcg PO DAILY No Action Aspirin EC [Ecotrin Low Dose] 81 mg PO DAILY Discharge Medication List Allopurinol 200 mg PO DAILY 01/13/15 [History] Levothyroxine Sodium [Synthroid] 25 mcg PO DAILY 01/13/15 [History] Lisinopril 10 mg PO DAILY 01/13/15 [History] Atorvastatin [Lipitor] 40 mg PO DAILY 01/25/15 [History] Pioglitazone [Actos] 15 mg PO DAILY 08/29/18 [History] Aspirin EC [Ecotrin Low Dose] 81 mg PO DAILY 09/20/18 [History] Cyanocobalamin (Vitamin B-12) [Vitamin B-12] 1,000 mcg PO DAILY 08/31/19 [History] Donepezil [Aricept] 10 mg PO HS 08/31/19 [History] Sertraline [Zoloft] 25 mg PO DAILY 08/31/19 [History] metFORMIN HCL ER [Glucophage Xr] 500 mg PO BID 08/31/19 [History] risperiDONE 0.25 mg PO TID 08/31/19 [History] Pantoprazole [Protonix] 40 mg PO AC-[facility] #30 tablet. 09/03/19 [Rx] Follow up Appointment(s)/Referral(s): Bro Brandon MD [STAFF PHYSICIAN] - 4 Weeks (office will call to set up follow up appointment ) Shannon Middleton DO [Primary Care Provider] - 3 Days Ambulatory/Diagnostic Orders: Complete Blood Count w/diff [LAB.AMB] Time Frame: 3 Days, Location: None Selected Patient Instructions/Handouts: Iron Deficiency Anemia (DC) Activity/Diet/Wound Care/Special Instructions: Please go to [facility] on September 07 at 11am for first dose of IV Iron. Discharge Disposition: HOME SELF-CARE
== END 2019-09-04 14:05 | disposition home or self-care (01) | DRG 812 ==
LOC: EC 17:20 → 6NMEDSUR 23:40
PROVIDERS: ADMIT Family Medicine; ATTEND Family Medicine
PROC: 05HF33Z Insertion of Infusion Device into Left Cephalic Vein, Percutaneous Approach (ICD-10-PCS; 2019-08-31)
PROC: 0DB98ZX Excision of Duodenum, Via Natural or Artificial Opening Endoscopic, Diagnostic (ICD-10-PCS; principal; 2019-09-01)
PROC: 0DB78ZX Excision of Stomach, Pylorus, Via Natural or Artificial Opening Endoscopic, Diagnostic (ICD-10-PCS; principal; 2019-09-01)
PROC: 30233N1 Transfusion of Nonautologous Red Blood Cells into Peripheral Vein, Percutaneous Approach (ICD-10-PCS; 2019-09-01)
DX: D50.0 Iron deficiency anemia secondary to blood loss (chronic) (principal); N17.9 Acute kidney failure, unspecified; Z68.41 Body mass index [BMI] 40.0-44.9, adult; F33.9 Major depressive disorder, recurrent, unspecified; F03.90 Unspecified dementia, unspecified severity, without behavioral disturbance, psychotic disturbance, mood disturbance, and anxiety; E66.9 Obesity, unspecified; K29.70 Gastritis, unspecified, without bleeding; K57.90 Diverticulosis of intestine, part unspecified, without perforation or abscess without bleeding; E78.5 Hyperlipidemia, unspecified; I10 Essential (primary) hypertension; E11.9 Type 2 diabetes mellitus without complications; E03.9 Hypothyroidism, unspecified; M19.90 Unspecified osteoarthritis, unspecified site; L40.9 Psoriasis, unspecified; M10.9 Gout, unspecified; Z79.82 Long term (current) use of aspirin; Z79.890 Hormone replacement therapy; Z79.84 Long term (current) use of oral hypoglycemic drugs; Z79.899 Other long term (current) drug therapy; Z86.73 Personal history of transient ischemic attack (TIA), and cerebral infarction without residual deficits; Z86.79 Personal history of other diseases of the circulatory system; Z86.14 Personal history of Methicillin resistant Staphylococcus aureus infection; Z90.710 Acquired absence of both cervix and uterus; Z98.890 Other specified postprocedural states; Z87.891 Personal history of nicotine dependence; Z80.3 Family history of malignant neoplasm of breast; Z82.49 Family history of ischemic heart disease and other diseases of the circulatory system; Z86.010 Personal history of colon polyps
CPT/HCPCS: 36410; 36415; 36430; 43239; 71046; 76937; 80048; 80053; 82272; 82607; 82728; 82747; 83540; 83550; 83735; 83921; 84484; 85025; 85027; 85045; 85610; 85730; 86850; 86870; 86880; 86900; 86901; 86920; 88305; 93005; 94760; 96374; 99285